=== PATIENT | female | born 1940 | race Caucasian/White ===

== ENCOUNTER 2022-06-29 09:18 | Emergency (ER) | payer MEDICARE, OTHER ==
[~2022-06-29] VITALS: Ht 177.8 cm; Wt 91.1 kg
[~2022-06-29 09:18] MED LIST: ANASTROZOLE1 MG PO; ASPIRIN EC325 MG PO; CELEBREX200 MG PO; ELIQUIS2.5 MG PO; FEXOFENADINE H180 MG PO; FLONASE ALLERG9.9 ML NS; FLUTICASONE PRO16 GM NAS; FOLIC ACID0.4 MG PO; FUROSEMIDE40 MG PO; GABAPENTIN300 MG PO; GLIPIZIDE XL2.5 MG PO; LAMISIL250 MG PO; LISINOPRIL-HCT1 EACH PO; METFORMIN HCL500 MG PO; METOPROLOL SUCC25 MG PO; NICOTINE PATCH1 EAC1 TD; NORCO 5-325 TA1 EACH PO; ONE DAILY1 EAC1 PO; PIROXICAM20 MG PO; POTASSIUM CHLO10 MEQ PO; RESTORIL15 MG PO; RESTORIL7.5 MG PO; SIMVASTATIN40 MG PO; TIZANIDINE HCL4 M1 PO; TRAMADOL HCL50 MG PO; TYLENOL PM EX-1 EACH PO; VITAMIN B-12500 MCG PO; VITAMIN B-6100 MG PO
--- OUTSIDE RECORDS SUMMARY | 2022-06-29 09:20 | XMS ---
PreManage Notification: ANABELLE MOODY Security Requirements Analyst Events No recent Security Events currently on file CRITERIA MET - PDMP CARE PROVIDERS Brad Maddy TANK BUILDER-C Nurse Practitioner: Current PHONE: [phone] Jamaal has no Care Guidelines for this patient. EJere VISIT COUNT (12 MO.) 1 KORIN Pérez TOTAL 1 NOTE: Visits indicate total known visits. ED/UCC VISIT TRACKING (12 MO.) 06/29/2022 09:19 [facility] [place] TYPE: Emergency COMPLAINT: - R LEG WOUND INPATIENT VISIT TRACKING (12 MO.) No inpatient visits to display in this time frame [id number]
== END 2022-06-29 12:03 | disposition home or self-care (01) ==
LOC: ED 09:18
DX: S81.811A Laceration without foreign body, right lower leg, initial encounter (principal); W22.8XXA Striking against or struck by other objects, initial encounter; E11.9 Type 2 diabetes mellitus without complications; I10 Essential (primary) hypertension; I48.91 Unspecified atrial fibrillation; F17.200 Nicotine dependence, unspecified, uncomplicated; Z79.899 Other long term (current) drug therapy; Z79.891 Long term (current) use of opiate analgesic
CPT/HCPCS: 12002; 99282-25

== ENCOUNTER 2022-07-26 13:20 | Inpatient (IN) | payer MEDICARE, OTHER ==
[~2022-07-26] VITALS: Ht 177.8 cm; Wt 91.2 kg
--- NOTE | ~2022-07-26 | EKG ---
[facility] [address], [place] [address] Draft EK completed, results pending confirmation PATIENT NAME: ANABELLE MOODY Electrocardiogram DATE OF : 42 PHYSICIAN: PRELIMINARY REPORT #: [id number] REPORT IS CONFIDENTIAL AND NOT TO BE RELEASED WITHOUT AUTHORIZATION
[~2022-07-26 13:20] MED LIST changes: +ONE DAILY COMP1 EACH PO; -ONE DAILY1 EAC1 PO
--- OUTSIDE RECORDS SUMMARY | 2022-07-26 13:22 | XMS ---
PreManage Notification: ANABELLE MOODY Security Traffic Signal Repairer Events No recent Security Events currently on file CRITERIA MET - [facility] - 2 [facility] in [facility] Maddy SalinasP-C Nurse Practitioner: Family Current PHONE: [phone] Jamaal has no Care Guidelines for this patient. Justo VISIT COUNT ([address] [facility] TOTAL 2 NOTE: Visits indicate total known visits. ED/UCC VISIT TRACKING (12 MO.) 07/26/2022 13:20 [facility] [place] TYPE: Emergency COMPLAINT: - FALL 06/29/2022 09:19 [facility] [place] TYPE: Emergency COMPLAINT: - R LEG WOUND DIAGNOSES: - FDC (current) use of opiate analgesic - Type 2 diabetes mellitus without complications - Striking against or struck by other objects, initial encounter - Laceration without foreign body, right lower leg, initial encounter - Other usp (current) drug therapy - Unspecified atrial fibrillation - Nicotine dependence, unspecified, uncomplicated - Essential (primary) hypertension INPATIENT VISIT TRACKING (12 MO.) No inpatient visits to display in this time frame [email or web address]
[2022-07-26] MEDS ORDERED: GLIPIZIDE5 MG PO (16:12)
--- NOTE | 2022-07-26 16:54 | NUR ---
TELEPHONE REPORT FROM ALECIA MUSTAFA. THIS NURSE TO RESUME CARE ONCE PATIENT ARRIVES TO MEDICAL FLOOR ROOM 110.
--- NOTE | 2022-07-26 18:00 | NUR ---
PATIENT TO [facility] VIA STRETCHER, TRANSFERED OVER TO BED WITH 2 PERSON ASSIST. PATIENT HAS HEARING BOX AND WITHOUT HEARING AID IS VERY C[place]ZON. PATIENT ANSWERING QUESTIONS AND RESPONDING APPROPRIATELY. DAUGHTER IN ROOM, APPEARS VERY AGITATED AND RESTLESS PACING BACK AND FORTH REQUESTING FOR PATIENT MEDICATIONS TO BE REVIEWED AND FOR HER TO HAVE FOOD. CALLED DR. HOLDER AND VERIFIED DIET. PROVIDED PATIENT WITH ENSURE AND APPLESAUCE. PATIENT SKIN HAS GENERALIZED BRUISING ON ARMS AND LEGS, LOWER BACK HAS ABRASIONS AND BRUISING. PATIENT COMPLAINS OF PAIN 5/10 IN LOWER BACK. APPLIED FOAM DRESSING TO BONY AREAS OF BACK TO HELP PROTECT AGAINST SHEAR AND PRESSURE IN BED. AREAS AROUND ABRASIONS AND BRUISING APPEAR BLANCHABLE. PATIENT FELL AT HOME AND IT IS UNKNOWN HOW LONG PATIENT WAS LAYING ON FLOOR. LUNG SOUNDS AUSCULTATE CLEAR, HR IRREGULAR 101-110 HX AFIB- TELE PLACED.
--- NOTE | 2022-07-26 19:10 | NUR ---
WHILE PATIENT GETTING UP TO BS HER HEARING BOX WAS NOT ON WELL AND PATIENT COULD NOT HEAR CNAS VERBAL COMMANDS TO TRANSFER TO BS. PATIENT HAD INCREASED PAIN WITH ACTIVITY UP TO [facility], PATIENT STATED "WHEN I GOT UP TO THE BS THE PAIN IN MY BACK WAS AN 8" PATIENT ALSO ACCIDENTLY MOVED AGAINST IV IN LEFT FA AND PULLING THE CATHETER LOOSE CAUSING THE IV SITE TO BLEED. PRESSURE WAS APPLIED, IV DC'D AND NEW IV INSERTED TO R FA PATIENT TOLERATED WELL. WHILE PATIENT UP HR INCREASED 140s, AFTER BACK TO BED HR RESTING [address] HOLDER NOTIFIED BY TELEPHONE. NO NEW ORDERS.
--- NOTE | 2022-07-26 20:04 | NUR ---
Patient sleeping in bed. New IV placed in right forearm by previous shift. Grandson and daughter at bedside. BACTERIOLOGY TEACHER in place. Bed alarm in place.
--- NOTE | 2022-07-26 20:18 | NUR ---
call light answered, pt awake and resting in bed. pt verbalizes desire to sit on edge of bed, 2pa provided, pt groans and is slow moving. bed alarm on and family remains in room, family educated to use call light if pt attempts to get oob or when the family wishes to leave for the night so the pt can be assisted back laying in bed. family verbalized understanding. pt wishes to drink water but is confused and attempts to drink from coban container, pt reorineted to surroundings and poc for shift. will continue to monitor, call light in reach and pt in view of rn station.
--- NOTE | 2022-07-26 21:15 | NUR ---
IN TO GET VITALS, ACCU CHECK, REPORTED TO RN, WATER REFILLED, NO FURTHER NEEDS AT THIS TIME
--- NOTE | 2022-07-27 00:23 | NUR ---
Patient sleeping in bed. HOB at about 45 degree per patient preference. Call light within reach. Bed alarm in place. On CPOX.
--- NOTE | 2022-07-27 02:56 | NUR ---
OBSERVED PATIENT DURING SLEEP AND WAS HAVING EPISODES OF OBSTRUCTION WITH DESATURATIONS TO LOW 80'S. PLACED 2 LPM WHICH RESOLVED THE DESATURATIONS. FAMILY EARLIER THIS EVENING STATES THAT THE PATIENT REFUSES TO HAVE A SLEEP STUDY.
--- NOTE | 2022-07-27 03:56 | NUR ---
Uneventful shift. Patient has become increasingly more cognicent as shift has progressed. Oriented to self and place. Responds appropriately to questions and commands. Very [place]. Bed alarm remains in place. Lung sounds clear. On CPOX. On 2L O2 via nasal cannula due to drop in O2 w/sleep. Fluctuates between A-fib and tachycardia. On telemetry. Infusing NS at rate of 125. BG 366 at HS. Multiple sores on back and right forearm covered by foam dressings. Scabs on bilat knees and lower extremities. Ambulates to bedside commode w/assist of two and walker. Complains of back pain (chronic). Effectively treated w/PRN ultram.
--- NOTE | 2022-07-27 07:43 | NUR ---
SHIFT REPORT RECEIVED. PT APPEARS TO BE SLEEPING COMFORTABLY. RESPIRATIONS EVEN AND REGULAR. CALL LIGHT WITHIN REACH.
--- NOTE | 2022-07-27 08:05 | NUR ---
PT ASSESSMENT COMPLETED. IV FLUIDS RUNNING. MEDICATIONS ADMINISTERED. HR RANGING FROM 117-140. METOPROLOL GIVEN. NO COMPLAINTS OF SOB OR CP ATT. CALL LIGHT WITHIN REACH.
[2022-07-27] MEDS ORDERED: DULOXETINE HCL20 MG PO (08:41)
[2022-07-27] MEDS ORDERED: LISINOPRIL-HCT1 EAC2 PO (08:42)
[2022-07-27] MEDS ORDERED: OZEMPIC0.25 MG/0. SUB-Q (08:44)
[2022-07-27] MEDS ORDERED: BUPROPION XL300 MG PO (08:44)
--- NOTE | 2022-07-27 09:21 | NUR ---
XRAY AT BEDSIDE TO TRANSPORT TO RADIOLOGY. PT SALINE LOCKED FOR TRANSPORT.
--- NOTE | 2022-07-27 10:03 | NUR ---
PT RETURNED FROM IMAGING. C/O PAIN 07/11 TO BACK. PAIN MEDICATION GIVEN. IV FLUIDS RUNNING. CPOX ON. FAMILY AT BEDSIDE.
--- NOTE | 2022-07-27 12:08 | NUR ---
TO PT ROOM FOR MEDICATION ADMINISTRATION. PT IS SITTING UP IN BED. RATES PAIN 7/10 IN BACK. PT IS A/O, RESPIRATIONS EVEN AND REGULAR.
--- NOTE | 2022-07-27 13:08 | NUR ---
MED REC COMPLETE
--- NOTE | 2022-07-27 13:59 | NUR ---
ROUNDED ON PT AND COMPLETED ASSESSEMENT. IV FLUIDS RUNNING. FAMILY AT BEDSIDE. PT IS A/O, SPEECH CLEAR, RESPIRATIONS EVEN AND REGULAR.
--- NOTE | 2022-07-27 14:20 | NUR ---
PATIENT IN BED TALKING TO FAMILY. I/O'S COMPLETED. VITALS COMPLETED. NO OTHER NEEDS AT THIS TIME. CALL LIGHT WITHIN REACH.
--- NOTE | 2022-07-27 14:22 | NUR ---
SPOKE WITH PATIENT IN ROOM. PATIENT HAS SON AND DAUGHTER IN ROOM. PATIENT ORIENTED. PATIENT LIVES ALONE IN SMALL HOUSE. OWNS HOME. USES A CANE AND HAS A FWW SHE USES ALSO. SHE DOES NOT DRIVE. USES TAXI TICKETS FOR TRIPS TO STORE, ETC. FEELS SHE HAS INCOME FOR UTILITIES AND FOOD. PATIENT DOES ADMIT SHE COULD USE SOME HELP AROUND THE HOUSE MORE WITH CHORES. DISCUSSED WHAT HER PLAN IS SHE AGES. SHE WOULD LIKE TO TRY IN-HOME HELP FOR NOW, BUT POSSIBLE ASST LIVING SOME DAY. SHE HAS WALK IN SHOWER WITH SMALL LIP, HAS SHOWER CHAIR. NO STAIRS IN HOME. SHE STATES HER KIDS WORK SO SHE LIKES TO BE INDEPENDENT. PATIENT KNOWS OF [employer] AND [employer] AND DID NOT HAVE GOOD THINGS TO SAY ABOUT EITHER. PATIENT HAS SOME AVERSION TO THOSE PLACES BEING IN HER BUSINESS. SHE HAS BEEN UP IN ROOM WITH FWW AND FEELS STEADIER TODAY SHE REPORTS. SHE INTENDS TO RETURN HOME. GAVE HER BROCHURES FOR IN-HOME CARE, DHS, ASSISTED LIVING, MEDICAL EQUIPMENT BORROWING INFORMATION. DISCUSSED SHE GETS CLOSER TO DISCHARGE OUR TEAM WILL FOLLOW UP AGAIN. NO FURTHER QUESTIONS.
--- NOTE | 2022-07-27 16:44 | NUR ---
ROUNDED ON PT. PT IS A/O, RESPIRATIONS EVEN AND REGULAR. DENIES COMPLAINTS OR NEEDS ATT.
--- NOTE | 2022-07-27 16:59 | NUR ---
TO PT ROOM FOR MEDICAITON ADMINISTRATION. PT A/O, IV FLUIDS RUNNING.
--- NOTE | 2022-07-27 18:59 | NUR ---
PATIENT LYING IN BED RESTING. VITALS AND I/O'S COMPLETED. NO OTHER NEEDS AT THIS TIME CALL LIGHT IN REACH.
--- NOTE | 2022-07-27 19:53 | NUR ---
Patient sleeping in bed. Bed alarm in place. Call light within reach.
--- NOTE | 2022-07-28 01:10 | NUR ---
Patient sleeping in bed. CPOX in place. On 2L O2 nasal cannula due to desat w/sleep. Bed alarm in place. Call light within reach.
--- NOTE | 2022-07-28 04:39 | NUR ---
Uneventful shift. Fully A&O. Calls appropriately. On 2L O2 during night via nasal cannula. Monitored on CPOX and telemetry. Infusing fluids at rate of 125. Complains of pain in back and bilat knees. Treated w/PRN ultram.
--- NOTE | 2022-07-28 05:40 | NUR ---
IN TO ASSIST PT TO [facility] [place] FWW, PT VOIDED, BACK TO BED, NO FURTHER NEEDS AT THIS TIME
--- NOTE | 2022-07-28 08:24 | NUR ---
PATIENT IN BED VISITING WITH FAMILY. AM CARE COMPLETED, DID NOT WANT TO GET UP IN CHAIR AT THIS TIME. NO OTHER NEEDS AT THIS TIME. CALL LIGHT WITHIN REACH.
--- NOTE | 2022-07-28 09:45 | NUR ---
TO PT ROOM FOR MORNING ASSESSMENT. PT TRANSFERRED WITH ONE PERSON ASSIST AND WALKER FROM CHAIR TO BED. PT IS A/O, RESPIRATIONS EVEN AND REGULAR. IV FLUIDS RUNNING. CALL LIGHT WITHIN REACH.
--- NOTE | 2022-07-28 09:57 | NUR ---
PATIENT BACK IN BED AFTER MEAL, VISITING WITH FAMILY. VITALS AND I/O'S COMPLETED. NO OTHER NEEDS, CALL LIGHT WITHIN REACH.
--- NOTE | 2022-07-28 10:13 | NUR ---
ROUNDED ON PT. PT RATES PAIN /10. ULTRAM GIVEN. FAMILY AND MD AT BEDSIDE. PT IS A/O, RESPIRATIONS EVEN AND REGULAR. IV FLUIDS RUNNING.
--- NOTE | 2022-07-28 11:15 | NUR ---
CALLED RADIOLOGY X2 TODAY RE:RESULTS OF XRAY COMPLETED YESTERDAY. IMAGING STILL HAS NOT READ.
--- NOTE | 2022-07-28 12:00 | NUR ---
TO PT ROOM FOR MEDICATION ADMINISTRATION. PT IS SITTING AT EOB WITH THERAPY. A/O, RESPIRATIONS EVEN AND REGULAR. NO NEW COMPLAINTS ATT.
--- NOTE | 2022-07-28 14:32 | NUR ---
PATIENT IN BED AFTER USING RESTROOM. VITALS AND I/O'S ARE COMPLETED. NO OTHER NEEDS AT THIS TIME. CALL LIGHT IN REACH.
--- NOTE | 2022-07-28 14:58 | NUR ---
PT ASSESSMENT COMPLETED. RATES PAIN /10. ULTRAM GIVEN. IV FLUIDS RUNNING. CALL LIGHT WITHIN REACH.
--- NOTE | 2022-07-28 18:04 | NUR ---
PATIENT RESTING IN BED AFTER MEAL. VITALS AND I/O'S COMPLETED. NO OTHER NEEDS AT THIS TIME. CALL LIGHT WITHIN REACH.
--- NOTE | 2022-07-28 18:24 | NUR ---
ROUND ON PT. PT IS A/O, SITTING UP IN BED. IV FLUIDS RUNNING. PT DENIES NEEDS OR COMPLAINTS ATT. CALL LIGHT WITHIN REACH.
--- NOTE | 2022-07-28 19:22 | NUR ---
REPORT RECEIVED FROM DAY SHIFT RN. PT LYING IN BED ALERT AND ORIENTED. DENIES NEEDS. WHITE BOARD UPDATED. CALL LIGHT IN REACH.
--- NOTE | 2022-07-28 22:00 | NUR ---
EVENING ASSESSMENT COMPLETE. SCHEDULED MEDS ADMIN PER EMAR. PRN FOR PAIN ADMIN FOR 8/10 BACK PAIN. PT UP TO BSC WITH 2PA AND FWW TO VOID. STAFF ASSIST WITH JAMI CARE. BACK TO BED. OPEN AREA NOTED ON RIGHT INNER GLUTEAL CLEFT PT CALLS A "BOIL." ALLEVYN PLACED. VS AND I&O COMPLETE. IVF INFUSING WNL. ASSISTED PT TO REPOSITION IN BED. PT DENIES QUESTIONS OR CONCERNS. CALL LIGHT IN REACH.
--- NOTE | 2022-07-29 00:18 | NUR ---
PT RESTING WITH EYES CLOSED. 2L/NC IN PLACE. SpO2 99%. HR 90'S. RESPIRATIONS EVEN. CALL LIGHT IN REACH.
--- NOTE | 2022-07-29 02:42 | NUR ---
CALL LIGHT ANSWERED. PT UP TO BSC WITH FWW AND 2PA TO VOID. STAFF ASSIST WITH JAMI CARE. BACK TO BED, ANDREA WELL.
--- NOTE | 2022-07-29 03:19 | NUR ---
PT REPORTS BACK PAIN 07/11. PRN FOR PAIN ADMIN PER EMAR.
--- NOTE | 2022-07-29 06:40 | NUR ---
VS AND I&O COMPLETE. PT DENIES PAIN OR NAUSEA. 2L/NC IN PLACE. SpO2 99%. HR 90'S. PT DENIES FURTHER NEEDS. CALL LIGHT IN REACH.
--- NOTE | 2022-07-29 08:15 | NUR ---
TO PT ROOM FOR MEDICATION ADMINISTRATION. PT IS UP IN CHAIR FOR MEAL. A/O, RESPIRATIONS EVEN AND REGULAR. PT REMAINS ON TELE. IV FLUIDS RUNNING.
--- NOTE | 2022-07-29 08:35 | NUR ---
PATIENT UP IN CHAIR AFTER USING BEDSIDE COMMODE, AM CARE COMPLETED AND BLOOD SUGAR CHECKED AND DOCUMENTED. NO OTHER NEEDS AT THIS TIME. CALL LIGHT WITHIN REACH.
--- NOTE | 2022-07-29 09:48 | NUR ---
ROUNDED ON PATIENT. PHYSICAL THERAPY AT BEDSIDE. IV FLUIDS RUNNING. RATES PAIN IN BACK 06/10. CALL LIGHT WITHIN REACH.
--- NOTE | 2022-07-29 10:22 | NUR ---
PATIENT IN BED AFTER USING RESTROOM, VITALS AND I/O'S COMPLETED. NO OTHER NEEDS AT THIS TIME. CALL LIGHT WITHIN REACH.
--- NOTE | 2022-07-29 11:39 | NUR ---
TO PT ROOM FOR MEDICATION ADMINISTRATION. PT IS A/O, RESPIRATIONS EVEN AND REGULAR. HR 99, SPO2 96% ON RA. IV MAG 4G RUNNING. CALL LIGHT WITHIN REACH.
--- NOTE | 2022-07-29 13:35 | NUR ---
PATIENT UP IN CHAIR AFTER MEAL. VITALS AND I/O'S COMPLETED. NO OTHER NEEDS AT THIS TIME. CALL LIGHT IN REACH.
--- NOTE | 2022-07-29 14:39 | NUR ---
PT ASSESSMENT COMPLETED. PT IS A/O, SITTING IN CHAIR. IV FLUIDS RUNNING. DENIES NEEDS OR COMPLAINTS ATT. CALL LIGHT WITHIN REACH.
--- NOTE | 2022-07-29 16:01 | NUR ---
TO PT ROOM FOR MEDICAITON ADMINISTRATION. RATES PAIN /. A/O, RESPIRATIONS EVEN AND REGULAR. CALL LIGHT WITHIN REACH.
--- NOTE | 2022-07-29 17:40 | NUR ---
TO PT ROOM FOR MEDICATION ADMINISTRATION. PT IS A/O, RESPIRATIONS EVEN AND REGULAR. PT IS SITTING UP IN CHAIR FOR MEAL. IV FLUIDS RUNNING. FAMILY AT BEDSIDE.
--- NOTE | 2022-07-29 18:23 | NUR ---
PATIENT UP IN CHAIR, VITALS AND I/O'S COMPLETED. NO OTHER NEEDS AT THIS TIME. CALL LIGHT WITHIN REACH.
--- NOTE | 2022-07-29 19:13 | NUR ---
REPORT RECEIVED FROM DAY SHIFT RN. PT SITTING IN RECLINER ALERT AND ORIENTED WATCHING TV. DENIES NEEDS. CALL LIGHT IN REACH.
--- NOTE | 2022-07-29 21:01 | NUR ---
PATIENT ASSISTED A 1PA TO BSC. Pt ABLE TO VOID. PATIENT ASSISTED TO THE BR TO BRUSH HER TEETH. PATIENT ABLE TO BRUSH TEETH INDEPENDENTLY. PATIENT IS NOW IN BED RESTING. PATIENTS BELONGINGS ARE WITHIN REACH. CALL LIGHT IN REACH. NO FURTHER NEEDS AT THIS TIME.
--- NOTE | 2022-07-29 21:02 | NUR ---
PATIENT IN BED RESTING. TEMP TURNED DOWN IN ROOM PER REQUEST. NO FURTHER NEEDS NOTED. CALL LIGHTIN REACH.
--- NOTE | 2022-07-29 21:15 | NUR ---
VITALS TAKEN AND RECORDED. INTAKE AND OUTPUT RECORDED. BS CHECKED AND RESULTS REPORTED TO PRIMARY RN. PATIENTS CPOX MONITOR CHANGED TO RING FINGER ON HER LEFT HAND. PATIENTS IV INFUSING PER ORDER. ATTEMPTED TO PLACE PATIENT ON OXYGEN. PATIENT STATED "I DONT NEED THAT. I CANT DO ONE MORE CORD". EDUCATED PATIENT ON THE IMPORTANCE OF OXYGEN AT NIGHT. PATIENT CONTINUED TO REFUSE.
--- NOTE | 2022-07-29 21:30 | NUR ---
EVENING ASSESSMENT COMPLETE. SCHEDULED MEDS ADMIN PER EMAR. PT REPORTS BACK/KNEE PAIN 07/11. PRN FOR PAIN ADMIN PER EMAR. IVF INFUSING WNL. PT DENIES NAUSEA. CPOX IN PLACE. SpO2 MID 90'S ON RA. ASSISTED PT TO REPOSITION FOR COMFORT. DENIES QUESTIONS OR CONCERNS. CALL LIGHT IN REACH.
--- NOTE | 2022-07-29 23:53 | NUR ---
PT RESTING IN BED WITH EYES CLOSED. RESPIRATIONS EVEN. SpO2 98% ON RA. HR 80'S.
--- NOTE | 2022-07-30 00:39 | NUR ---
patient called to use the restroom. 1 pa using walker. bedside commode this time. patient is back in bed. cpox back on. patient denies any further care or needs. call light within reach.
--- NOTE | 2022-07-30 04:04 | NUR ---
PT RESTING IN BED WITH EYES CLOSED. Sp02 94% ON RA. HR 80'S. RESPIRATIONS EVEN.
--- NOTE | 2022-07-30 06:30 | NUR ---
PT REPORTS BACK/KNEE PAIN 08/11. PRN FOR PAIN ADMIN PER EMAR. DENIES FURTHER NEEDS. CALL LIGHT IN REACH.
--- NOTE | 2022-07-30 07:38 | NUR ---
PT APPEARS TO BE SLEEPING SOUNDLY AT TIME OF SHIFT REPORT, LEFT UNDISTURBED. CALL LIGHT IS ON BED NEXT TO HER, NEEDED ITEMS AT BEDSIDE. BREATHING EVEN AND UNLABORED LOODS RESTFUL.
--- NOTE | 2022-07-30 09:46 | NUR ---
PT UP TO THE CHAIR FOR MORNING MEAL. WATCHES TV, TALKS ON PHONE, DENIES NEEDS OF. C/O SORE LEGS FROM P/T WAS TREATED FOR PAIN EARLIER IN THE SHIFT. SPEAKS TO DT ON THE PHONE TO NOTIFIY HER OF MEETING WITH D/C SECURITY ADVISOR LATER TODAY. CALL LIGHT IN REACH
--- NOTE | 2022-07-30 10:36 | NUR ---
PT WORKS WITH P/T RETURNS TO REST IN BED C/O LEG PAIN. ULTRAM PROVIDED. NEEDED ITEMS IN REACH
--- NOTE | 2022-07-30 10:44 | NUR ---
SPOKE WITH PATIENT AND PATIENT DAUGHTER ELIANA VIA PHONE. ELIANA WILL COME IN TO DISCUSS DISCHARGE DISPOSITION AT 11 AM.
--- NOTE | 2022-07-30 11:00 | NUR ---
INTO ROOM TO SPEAK WITH PATIENT AND HER DAUGHTER ELIANA REGARDING DISCHARGE DISPOSITION. WHEN ASKES PATIENT AGREE THAT SHE DOES NOT FEEL THAT SHE IS SAFE LIVING AT HOME ALONE AT THIS TIME. DISCUSSED WITH PATIENT AND FAMILY PLACMENT TO A [facility] FOR 21 DAY REHAB STAY. PATIENT AND DAUGHTER ARE AGREEABLE TO PLACEMENT AND WOULD LIKE TO CONSIDER [facility], [facility] AND [facility] AT THE [facility]. DISCUSSED THAT THE PATIENT CAN SPEAK WITH [facility] TO START THE HALFWAY MEDICAID PROCESS IN [place] TO TRANSFER TO AN ARSLAN WHEN DISCHARGED FROM [facility]. LIST OF ARSLAN AND CARD FOR [facility] GIVEN TO PATIENT DAUGHTER ELIANA WHO WILL ASSIST THE PATIENT. DISCUSSED WITH PATIENT THE DIFFICULTIES SHE FEELS SHE HAS HAD COMMUNICATING WITH THE PA AT HER PCP OFFICE. ADVISED THAT IT MAY BE A GOOD IDEA FOR THE PATIENT TO TRANSFER CARE TO DR. SANTANA TO SEE IF HER DIFFICULTIES RESOLVE. PATIENT AND DAUGHTER AGREE. WILL CALL FOR BED AVAILABILITY AT [facility] AND START THE PLACEMENT PROCESS. WILL CALL PCP OFFICE TO HAVE HER TRANSFERRED TO DR. SANTANA. ADVISED THAT I WILL UPDATE PATIENT AND HER DAUGHTER WITH PLAN JAMAL.
--- NOTE | 2022-07-30 14:02 | NUR ---
PER SHARATH AT [facility] NEXT BED AVAILABLE WILL BE Saturday08/01/22. CHART FAXED FOR REVIEW. PER EDWIN AT [facility] NEXT BED AVAILABILITY 07/22/22. CHART FAXED FOR REVIEW.
--- NOTE | 2022-07-30 14:19 | NUR ---
PT SITTING UP IN BED JUST FINISHED WORKING WITH O/T REQUESTS PAIN MEDS FOR DISCOMFORT IN HER BACK AND THE BACK OF HER KNEES.
--- NOTE | 2022-07-30 14:21 | NUR ---
P.T. IN WITH PT, WILL CHECK BACK AGAIN.
--- NOTE | 2022-07-30 14:51 | NUR ---
PT AGREES PAIN MEDS WERE EFFECTIVE AND SHE IS RESTING COMFORTABLY NOW. STATES SHE IS GOING TO [facility] FOR A BIT. ENCOURAGED TO CALL FOR ANY NEEDS
--- NOTE | 2022-07-30 17:22 | NUR ---
PT SITTING UP IN BED WITH EVENING MEAL DENIES FURTHER NEEDS AT THIS TIME
--- NOTE | 2022-07-30 18:01 | NUR ---
PT IN BED. VITALS AND I'S AND O'S TAKEN. NO FURTHER NEEDS. CALL LIGHT WITHIN REACH.
--- NOTE | 2022-07-30 19:41 | NUR ---
REPORT RECEIVED FROM DAY SHIFT RN. PT LYING IN BED WITH EYES CLOSED. RESPIRATIONS EVEN. CALL LIGHT IN REACH.
--- NOTE | 2022-07-30 20:57 | NUR ---
EVENING ASSESSMENT COMPLETE. SCHEDULED MEDS ADMIN PER EMAR. PRN FOR PAIN ADMIN FOR C/O 810 BACK AND KNEE PAIN. PT UP TO BSC TO VOID WITH 1PA AND FWW. PT ABLE TO DO OWN JAMI CARE. BACK TO BED, ANDREA WELL. GAIT STEADY. ASSISTED TO REPOSITION IN BED. IVF INFUSING WNL. CPOX IN PLACE. SpO2 HIGH 90'S ON RA. PT DENIES QUESTIONS OR CONCERNS. CALL LIGHT IN REACH.
--- NOTE | 2022-07-30 23:00 | NUR ---
PT RESTING IN BED WITH EYES CLOSED. RESPIRATIONS EVEN. SpO2 97% ON RA. HR 90'S. CALL LIGHT IN REACH.
--- NOTE | 2022-07-31 00:23 | NUR ---
IV PUMP ALARMING. NEW BAG IVF INFUSING WNL. PT UP TO BSC WITH 1PA AND FWW TO VOID. BACK TO BED, ANDREA WELL. DENIES FURTHER NEEDS. CALL LIGHT IN REACH.
--- NOTE | 2022-07-31 03:21 | NUR ---
PT UP TO BSC WITH MATLAB DEVELOPER. BACK TO BED. REPORTS NOT BEING ABLE TO SLEEP AND PAIN IN BACK. PRN FOR PAIN AND SLEEP ADMIN PER EMAR. CPOX IN PLACE. SpO2 98% ON RA. HR 90'S. NO FURTHER NEEDS. CALL LIGHT IN REACH.
--- NOTE | 2022-07-31 06:27 | NUR ---
PT SITTING ON SIDE OF BED. REPORTS BEING UNABLE TO REST DESPITE PRN FOR SLEEP AND PAIN ADMIN. VS AND I&O OBTAINED. PT UP TO BR TO VOID WITH SBA AND FWW. PT REPORTS INCREASED PAIN AND WEAKNESS SINCE PT YESTERDAY. WILL ADMIN PRN FOR PAIN WHEN AVAILABLE. LAB IN ROOM FOR MORNING DRAW. NO FURTHER NEEDS.
--- NOTE | 2022-07-31 07:32 | NUR ---
PT SLEEPING SOUNDLY AT TIME OF SHIFT REPORT, BREATHING EVEN AND UNLABORED, LEFT UNDISTURBED. CALL LIGHT AT BEDSIDE.
--- NOTE | 2022-07-31 07:44 | NUR ---
PT AWAKE IN BED. PT REFUSED TO OPEN CURTAINS. WARM CLOTH GIVEN FOR FACE. WHITE BOARD UPDATED. NO FURTHER NEEDS AT THIS TIME. CALL LIGHT IN REACH.
--- NOTE | 2022-07-31 08:00 | NUR ---
PT UP SBA WITH FWW TO BSC THEN THE CHAIR. PT SITTING UP WITH CALL LIGHT IN REACH. NO FURTHER NEEDS AT THIS TIME.
--- NOTE | 2022-07-31 08:15 | NUR ---
PT UP TO TOILET THEN TO CHAIR FOR MORNING MEAL. CALL LIGHT IN LAP FRESH H20 TO CHAIRSIDE.
--- NOTE | 2022-07-31 11:32 | NUR ---
PT HAS BEEN UP IN THE CHAIR MOST OF THIS SHIFT, RETURNS TO BED TO REST. STATES HER KNEES ARE "KILLING ME" PRN MEDS TO BE ADMINISTERED
--- NOTE | 2022-07-31 12:52 | NUR ---
THIS RN IN TO SEE PATIENT FOR CM. PATIENT SAYS SHE WOULD CONSIDER GOING TO A SNF IF SHE HAD A 3 DAY INPATIENT QUALIFYING STAY. PATIENT IS AWARE SHE WOULD HAVE TO HAVE THE THREE DAYS FOR THIS TO HAPPEN AND SHE VERBALIZED UNDERSTANDING. PATIENT ALSO GIVEN THE STATE CARE GIVERS INFORMATION AND THE PRIVATE CARE INFORMATION FOR FAMILY RESCOURCES.
--- NOTE | 2022-07-31 13:49 | NUR ---
PT RESTING IN BED AND READING A BOOK. CALL LIGHT IN REACH. FLUIDS ENCOURAGED. NO FURTHER NEEDS AT THIS TIME.
--- NOTE | 2022-07-31 14:51 | NUR ---
pt up several times passing loose stool. returns to resting in bed dc resource management planner is with her now.
--- NOTE | 2022-07-31 14:51 | NUR ---
PT CALLED WHEN DONE USING BATHROOM. THIS CNA2 PERFORMED JAMI CARE ON PT THEN SHE AMBULATED BACK TO BED W/STBY ASSIST & THE USE OF A FWW. PT COMPLAINED OF KNEE PAIN BUT SHE WAS STEADY. PT WAS ABLE TO GET HERSELF IN BED AND ADJUSTED INDEPENDENTLY. PT IS READING IN BED W/CALL LIGHT IN PLACE.
--- NOTE | 2022-07-31 14:58 | NUR ---
THIS RN IN TO TALK WITH PATIENT ABOUT PLACEMENT OPTIONS. INFORMED PATIENT HAIM TUCKER WAS GOING TO BE UNABLE TO TAKE HER AND THAT WE HAVE CALLS OUT TODAY TO [facility] AND HAVE NOT HAD A RETURN CALL YET. THIS RN INFORMED PATIENT THAT [facility] HAD BEDS AVAILABLE AND THAT [facility] MIGHT HAVE A BED. PATIENT SAYS SHE DOES NOT WANT TO GO TO [facility] AND SHE WILL NOT GO TO [facility]. [facility] RESPONDED WHILE TYPING THIS NOTE AND THEY WILL NOT HAVE ANY BEDS AVAILABLE THIS WEEK.
--- NOTE | 2022-07-31 15:55 | NUR ---
[facility] WILL ACCEPT NEW PATIENT'S THAT ARE NOT VACCINATED LONG THEY ARE CURRENTLY NOT COVID POSITIVE. PATIENT'S CHART FAXED TO THEM FOR REVIEW THERE ARE NO OTHER CURRENT AVAILABLE OPTIONS.
[2022-07-31] MEDS ORDERED: DULOXETINE HCL20 MG PO (16:32)
[2022-07-31] MEDS ORDERED: TRAMADOL HCL50 MG PO (16:32)
[2022-07-31] MEDS ORDERED: BUPROPION XL300 MG PO (16:33)
--- NOTE | 2022-07-31 16:49 | NUR ---
THIS RN IN TO TALK WITH PATIENT AND HER DAUGHTER ELIANA. I INFORMED THEM THAT [facility] AND [facility]ATE HAVE RESPONDED AND HAVE NO UNAVAILABLE BEDS AND WILL NOT HAVE THIS WEEK. INFORMED THEM THAT [facility] BE ABLE TO TAKE HER TOMORROW. PATIENT AND DAUGHTER HAVE AGREED TO DC TO [facility] IF THAT IS WHAT CAN BE ARRANGED, BUT WOULD LIKE US TO JUST CHECK WITH YESICA KATE IF ANYTHING OPENS UP OVERNIGHT AND [facility] WILL CHECK ON THIS IN THE AM. ELIANA IS NOT COMFORTABLE TRANSPORTING HER MOM AT [place]. PATIENT AND DAUGHTER HAVE AGREED TO MAKE PRIVATE PAYMENT FOR A WHEELCHAIR VAN TO TRANSPORT THE PATIENT ON [place]. THEY ARE AWARE OF THE COST AND WILL MAKE A CREDIT CARD PAYMENT FOR THE SERVICE. [facility] WILL LET US KNOW IF THEY WILL TAKE THE PATIENT IN THE AM. RAPID COVID TEST JUST ORDERED FOR DISPOSITION.
--- NOTE | 2022-07-31 16:54 | NUR ---
PT SITTING UP IN CHAIR VISITING WITH HER DAUGHTER. DC DRY PLASTERER IN TO SPEAK WITH BOTH
--- NOTE | 2022-07-31 19:34 | NUR ---
REPORT RECEIVED FROM DAY SHIFT RN. PT LYING IN BED ALERT AND ORIENTED. ASSISTED TO REPOSITION. DENIES FURTHER NEEDS. WHITE BOARD UPDATED. CALL LIGHT IN REACH.
--- NOTE | 2022-07-31 22:00 | NUR ---
PT UP TO BSC TO VOID WITH FWW AND 1PA. GAIT STEADY. PT ABLE TO DO OWN JAMI CARE. BACK TO BED, ANDREA WELL. EVENING ASSESSMENT COMPLETE. SCHEDULED MEDS ADMIN PER EMAR. PRN FOR PAIN ADMIN FOR 8/10 BILAT KNEE PAIN. PRN FOR SLEEP ADMIN PER PT REQUEST. ASSISTED PT TO REPOSITION FOR COMFORT. PT DENIES QUESTIONS OR CONCERNS. CALL LIGHT IN REACH.
--- NOTE | 2022-07-31 23:38 | NUR ---
PT AWAKE IN BED. UP TO BSC WITH 1PA AND FWW TO VOID. BACK TO BED. ANDREA WELL. LIGHTS OUT PER REQUEST. NO FURTHER NEEDS.
--- NOTE | 2022-08-01 02:00 | NUR ---
CALL LIGHT ANSWERED. PT UP TO BSC WITH 1PA AND FWW TO VOID. ABLE TO DO OWN JAMI CARE. BACK TO BED, ANDREA WELL. DENIES FURTHER NEEDS.
--- NOTE | 2022-08-01 02:56 | NUR ---
CALL LIGHT ANSWERED. PT UP TO BSC TO VOID WITH FWW AND 1PA. BACK TO BED. PT REPORTS 8/10 KNEE PAIN. PRN FOR PAIN ADMIN PER EMAR. NO FURTHER NEEDS.
--- NOTE | 2022-08-01 05:28 | NUR ---
CALL LIGHT ANSWERED. PT UP TO BSC WITH FWW AND 1PA TO VOID. PT ABLE TO DO OWN JAMI CARE. GAIT WEAK R/T BILAT KNEE PAIN. BACK TO BED, ANDREA WELL. VS AND I&O COMPLETE. DENIES FURTHER NEEDS. CALL LIGHT IN REACH.
--- NOTE | 2022-08-01 08:13 | NUR ---
MORNING ASSESSMENT COMPLETE, PT SITTING UP IN RECLINER AWAITING BREAKFAST. PT DENIES NEEDS AT THIS TIME. WARM BLANKETS PROVIDED. CALL LIGHT IN REACH.
--- NOTE | 2022-08-01 08:33 | NUR ---
PATIENT DID AM CARES, WAS WATING FOR BREAKFAST, PATIENT NEEDED NO OTHER ASSISTANCE, WILL CHECK BACK IN, CALL LIGHT WAS WITHIN REACH
--- NOTE | 2022-08-01 09:08 | NUR ---
Attempted to call [facility] in [place] x 2 this am and also texted Karen to check for a bed. FAmily would prefer placement in [facility], they do not have beds open. Received a text from Ann Marie at [facility] at [phone] and they will accept her today. They would like her early. Let her know I will contact the Gabstr van and it will depend on their scheduled. They also requested pt to be notified they have a no smoking policy. Pt notified and states she is not a smoker. Orders were faxed at [phone] to Ann Marie at [facility]. WC van scheduled for 10:00 pickup. They will use our wc. Discussed with pt clothing, personal belongings, and shoes to walk in for rehab. She will call her daughter to bring items. Pt will pay the wc van with a card. Pt denies other needs
--- NOTE | 2022-08-01 09:32 | NUR ---
PATIENT IS GETTING READY FOR DISCHARGE, PATIENT'S DAUGHTER IS HERE, WILL ASSIST IN GETTING PATIENT READY TO GO!
== END 2022-08-01 10:00 | disposition home or self-care (01) | DRG 917 ==
LOC: ED 13:20 → MS 13:21
PROVIDERS: ADMIT Family Medicine; ATTEND Internal Medicine
DX: T42.4X1A Poisoning by benzodiazepines, accidental (unintentional), initial encounter (principal); G92.8 Other toxic encephalopathy; N17.9 Acute kidney failure, unspecified; M62.82 Rhabdomyolysis; Z20.822 Contact with and (suspected) exposure to COVID-19; M54.9 Dorsalgia, unspecified; E87.6 Hypokalemia; E11.9 Type 2 diabetes mellitus without complications; I48.91 Unspecified atrial fibrillation; E83.42 Hypomagnesemia; Z90.49 Acquired absence of other specified parts of digestive tract; Z79.01 Long term (current) use of anticoagulants; Z79.84 Long term (current) use of oral hypoglycemic drugs; Z79.899 Other long term (current) drug therapy; X58.XXXA Exposure to other specified factors, initial encounter
CPT/HCPCS: 36415; 70450; 71045; 72070; 72100; 80048; 80053; 81001; 82553; 83735; 85025; 85610; 93005; 93010; 94762; 97110; 97116; 97162; 97165; 97535; 99285-25; A9270; C9803; J1815; J3475; J7030; U0003

== ENCOUNTER 2023-07-16 11:28 | Inpatient (IN) | payer MEDICARE, OTHER ==
[~2023-07-16] VITALS: Ht 177.8 cm; Wt 76.4 kg
--- OUTSIDE RECORDS SUMMARY | ~2023-07-16 | XMS | Continuity of Care Document ---
Demographics + + + | Address | [address] | | | [place] [address] | + + + | Preferred Language | Unknown | + + + | Marital Status | Never | + + + | Presybeterian Affiliation | Unknown | + + + | Race | White | + + + | Ethnic Group | Not or | + + + Author + + + | Author | [facility] | + + + | Organization | [facility] | + + + | Address | [address] | | | [place] [address] | + + + | Phone | | + + + Care Team Providers + + + + | Care Cornice Maker Name | Role | Phone | + + + + Unavailable | Unavailable | + + + + Unavailable | Unavailable | + + + + Unavailable | Unavailable | + + + + Allergies and Intolerances + + + + + + | date | description | facility | reaction | severity | + + + + + + | (no date) | No Known | [facility] | (no reaction) | (no severity) | | | Allergies | | | | + + + + + + Encounters No information. Functional Status No information. Immunizations No information. Medications + + + + | date | description | facility | + + + + | 2022-06-29 00:00 | TERBINAFINE | [facility] | + + + + | 2022-08-01 00:00 | TERBINAFINE | [facility] | + + + + | 2023-07-08 00:00 | TERBINAFINE | [facility] | + + + + | 2022-06-29 00:00 | APIXABAN | [facility] | + + + + | 2022-08-01 00:00 | APIXABAN | [facility] | + + + + | 2023-07-08 00:00 | APIXABAN | [facility] | + + + + | 2022-06-29 00:00 | FLUTICASONE PROPIONATE 50 | [facility] | | | MCG | | + + + + | 2022-08-01 00:00 | FLUTICASONE PROPIONATE 50 | [facility] | | | MCG | | + + + + | 2023-07-08 00:00 | FLUTICASONE PROPIONATE 50 | [facility] | | | MCG | | + + + + | 2022-06-29 00:00 | FLUTICASONE PROPIONATE | [facility] | + + + + | 2022-08-01 00:00 | FLUTICASONE PROPIONATE | [facility] | + + + + | 2023-07-08 00:00 | FLUTICASONE PROPIONATE | [facility] | + + + + | 2022-06-29 00:00 | | [facility] | | | LISINOPRIL/HYDROCHLOROTHIAZ | | | | LUZ | | + + + + | 2022-06-29 00:00 | NICOTINE 21MG | [facility] | + + + + | 2022-08-01 00:00 | NICOTINE 21MG | [facility] | + + + + | 2023-07-08 00:00 | NICOTINE 21MG | [facility] | + + + + | 2022-06-29 00:00 | PIROXICAM | [facility] | + + + + | 2022-08-01 00:00 | PIROXICAM | [facility] | + + + + | 2023-07-08 00:00 | PIROXICAM | [facility] | + + + + | 2022-06-29 00:00 | SIMVASTATIN | [facility] | + + + + | 2022-08-01 00:00 | SIMVASTATIN | [facility] | + + + + | 2023-07-08 00:00 | SIMVASTATIN | [facility] | + + + + | 2022-06-29 00:00 | FOLIC ACID | [facility] | + + + + | 2022-08-01 00:00 | FOLIC ACID | [facility] | + + + + | 2023-07-08 00:00 | FOLIC ACID | [facility] | + + + + | 2022-06-29 00:00 | PYRIDOXINE HCL | [facility] | + + + + | 2022-06-29 00:00 | TEMAZEPAM | [facility] | + + + + | 2022-08-01 00:00 | TEMAZEPAM | [facility] | + + + + | 2023-07-08 00:00 | TEMAZEPAM | [facility] | + + + + | 2022-06-29 00:00 | TEMAZEPAM | [facility] | + + + + | 2022-06-29 00:00 | CELECOXIB | [facility] | + + + + | 2022-06-29 00:00 | GABAPENTIN | [facility] | + + + + | 2022-06-29 00:00 | GLIPIZIDE | [facility] | + + + + | 2022-08-01 00:00 | GLIPIZIDE | [facility] | + + + + | 2023-07-08 00:00 | GLIPIZIDE | [facility] | + + + + | 2022-06-29 00:00 | POTASSIUM CHLORIDE | [facility] | + + + + | 2022-06-29 00:00 | CYANOCOBALAMIN (VITAMIN | [facility] | | | B-12) | | + + + + | 2022-06-29 00:00 | FUROSEMIDE | [facility] | + + + + | 2022-06-29 00:00 | ASPIRIN | [facility] | + + + + | 2022-08-01 00:00 | ASPIRIN | [facility] | + + + + | 2023-07-08 00:00 | ASPIRIN | [facility] | + + + + | 2022-06-29 00:00 | TIZANIDINE HCL | [facility] | + + + + | 2022-07-31 00:00 | DULOXETINE HCL | [facility] | + + + + | 2022-08-01 00:00 | DULOXETINE HCL | [facility] | + + + + | 2023-07-08 00:00 | DULOXETINE HCL | [facility] | + + + + | 2022-06-29 00:00 | TRAMADOL HCL | [facility] | + + + + | 2022-07-31 00:00 | TRAMADOL HCL | [facility] | + + + + | 2022-08-01 00:00 | TRAMADOL HCL | [facility] | + + + + | 2023-07-08 00:00 | TRAMADOL HCL | [facility] | + + + + | 2022-06-29 00:00 | HYDROCODONE | [facility] | | | BIT/ACETAMINOPHEN | | + + + + | 2022-08-01 00:00 | HYDROCODONE | [facility] | | | BIT/ACETAMINOPHEN | | + + + + | 2023-07-08 00:00 | HYDROCODONE | [facility] | | | BIT/ACETAMINOPHEN | | + + + + | 2022-06-29 00:00 | METOPROLOL SUCCINATE | [facility] | + + + + | 2022-08-01 00:00 | METOPROLOL SUCCINATE | [facility] | + + + + | 2023-07-08 00:00 | METOPROLOL SUCCINATE | [facility] | + + + + | 2022-07-31 00:00 | BUPROPION HCL | [facility] | + + + + | 2022-08-01 00:00 | BUPROPION HCL | [facility] | + + + + | 2023-07-08 00:00 | BUPROPION HCL | [facility] | + + + + | 2022-06-29 00:00 | FEXOFENADINE HCL | [facility] | + + + + | 2022-08-01 00:00 | FEXOFENADINE HCL | [facility] | + + + + | 2023-07-08 00:00 | FEXOFENADINE HCL | [facility] | + + + + Problems + + + + | date | description | facility | + + + + | 2022-07-26 00:00 | Diabetes mellitus | [facility] | + + + + | 2022-07-26 00:00 | Atrial fibrillation | [facility] | + + + + | 2022-07-26 00:00 | Acute kidney injury | [facility] | + + + + | 2022-07-26 00:00 | Altered mental status | [facility] | + + + + | 2023-07-08 00:00 | General patient | [facility] | | | noncompliance | | + + + + | 2023-07-08 09:35 | TYPE 2 DIABETES MELLITUS | [facility] | | | WITHOUT COMPLICATIONS | | + + + + | 2023-07-08 09:35 | NICOTINE DEPENDENCE, | [facility] | | | UNSPECIFIED, UNCOMPLICATED | | + + + + | 2023-07-08 09:35 | 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 | | + + + + | 2023-07-08 09:35 | Essential (primary) | [facility] | | | hypertension | | + + + + | 2023-07-08 09:35 | UNSPECIFIED ATRIAL | [facility] | | | FIBRILLATION | | + + + + | 2023-07-08 09:35 | WEAKNESS | [facility] | + + + + | 2023-07-08 09:35 | NURSING HOME (CURRENT) USE OF | [facility] | | | ANTICOAGULANTS | | + + + + | 2023-07-08 09:35 | WATERWORKS OPERATOR (CURRENT) USE OF | [facility] | | | INSULIN | | + + + + | 2023-07-08 09:35 | NURSING HOME (CURRENT) USE OF | [facility] | | | ORAL HYPOGLYCEMIC DRUGS | | + + + + | 2023-07-08 09:35 | OTHER NURSING HOME (CURRENT) | [facility] | | | DRUG THERAPY | | + + + + Procedures No information. Results/Labs +--------+--------+ +---------+--------+---------+ | test | date | facility | value | unit | notes | +--------+--------+ +---------+--------+---------+ + + | Result panel 1 | + + + + + +--------+ + + | | 2022-07-26 | [facility] | 13.7 | (missing) | (missing) | | (unavailable | 13:29 | [facility] | | | | + + + +--------+ + + + + | Result panel 2 | + + + + + +--------+ + + | | 2022-07-26 | [facility] | 1.07 | (missing) | (missing) | | (unavailable | 13:29 | [facility] | | | | + + + +--------+ + + + + | Result panel 3 | + + + + + + + + + | | 2022-07-26 | [facility] | YELLOW | (missing) | (missing) | | (unavailable | 13:44 | [facility] | | | | + + + + + + + + + | Result panel 4 | + + + + + +---------+ + + | | 2022-07-26 | [facility] | CLEAR | (missing) | (missing) | | (unavailable | 13:44 | [facility] | | | | + + + +---------+ + + + + | Result panel 5 | + + + + + + + + + | | 2022-07-26 | [facility] | MODERATE | (missing) | (missing) | | (unavailable | 13:44 | [facility] | | | | + + + + + + + + + | Result panel 6 | + + + + + + + + + | | 2022-07-26 | [facility] | NEGATIVE | (missing) | (missing) | | (unavailable | 13:44 | [facility] | | | | + + + + + + + + + | Result panel 7 | + + + + + +---------+ + + | | 2022-07-26 | [facility] | SMALL | (missing) | (missing) | | (unavailable | 13:44 | [facility] | | | | + + + +---------+ + + + + | Result panel 8 | + + + + + +---------+ + + | | 2022-07-26 | [facility] | 1.025 | (missing) | (missing) | | (unavailable | 13:44 | [facility] | | | | + + + +---------+ + + + + | Result panel 9 | + + + + + + + + + | | 2022-07-26 | [facility] | TRACE-L | (missing) | (missing) | | (unavailable | 13:44 | [facility] | | | | + + + + + + + + + | Result panel 10 | + + + + + +-------+ + + | | 2022-07-26 | [facility] | 6.0 | (missing) | (missing) | | (unavailable | 13:44 | [facility] | | | | + + + +-------+ + + + + | Result panel 11 | + + + + + + + + + | | 2022-07-26 | [facility] | NEGATIVE | (missing) | (missing) | | (unavailable | 13:44 | [facility] | | | | + + + + + + + + + | Result panel 12 | + + + + + + + + + | | 2022-07-26 | [facility] | NORMAL | (missing) | (missing) | | (unavailable | 13:44 | [facility] | | | | + + + + + + + + + | Result panel 13 | + + + + + + + + + | | 2022-07-26 | [facility] | NEGATIVE | (missing) | (missing) | | (unavailable | 13:44 | [facility] | | | | + + + + + + + + + | Result panel 14 | + + + + + + + + + | | 2022-07-26 | [facility] | NEGATIVE | (missing) | (missing) | | (unavailable | 13:44 | [facility] | | | | + + + + + + + + + | Result panel 15 | + + + + + + + + + | | 2022-07-26 | [facility] | NEGATIVE | (missing) | (missing) | | (unavailable | 13:44 | [facility] | | | | + + + + + + + + + | Result panel 16 | + + + + + + + + + | | 2022-07-26 | [facility] | NEGATIVE | (missing) | (missing) | | (unavailable | 13:44 | [facility] | | | | + + + + + + + + + | Result panel 17 | + + + + + + + + + | | 2022-07-26 | [facility] | NEGATIVE | (missing) | (missing) | | (unavailable | 13:44 | [facility] | | | | + + + + + + + + + | Result panel 18 | + + + + + + + + + | | 2022-07-26 | [facility] | POSITIVE | (missing) | (missing) | | (unavailable | 13:44 | [facility] | | | | + + + + + + + + + | Result panel 19 | + + + + + + + + + | | 2022-07-26 | [facility] | NEGATIVE | (missing) | (missing) | | (unavailable | 13:44 | [facility] | | | | + + + + + + + + + | Result panel 20 | + + + + + + + + + | | 2022-07-26 | [facility] | NEGATIVE | (missing) | (missing) | | (unavailable | 13:44 | [facility] | | | | + + + + + + + + + | Result panel 21 | + + + + + + + + + | | 2022-07-26 | [facility] | NEGATIVE | (missing) | (missing) | | (unavailable | 13:44 | [facility] | | | | + + + + + + + + + | Result panel 22 | + + + + + + + + + | | 2022-07-26 | [facility] | NEGATIVE | (missing) | (missing) | | (unavailable | 13:44 | [facility] | | | | + + + + + + + + + | Result panel 23 | + + + + + + + + + | | 2022-07-26 | [facility] | NEGATIVE | (missing) | (missing) | | (unavailable | 13:44 | [facility] | | | | + + + + + + + + + | Result panel 24 | + + + + + + + + + | | 2022-07-26 | [facility] | NEGATIVE | (missing) | (missing) | | (unavailable | 13:44 | [facility] | | | | + + + + + + + + + | Result panel 25 | + + + + + + + + + | | 2022-07-26 | [facility] | NEGATIVE | (missing) | (missing) | | (unavailable | 13:44 | [facility] | | | | + + + + + + + + + | Result panel 26 | + + + + + + + + + | | 2022-07-26 | [facility] | NEGATIVE | (missing) | (missing) | | (unavailable | 13:44 | [facility] | | | | + + + + + + + + + | Result panel 27 | + + + + + + + + + | | 2022-07-26 | [facility] | NEGATIVE | (missing) | (missing) | | (unavailable | 13:44 | [facility] | | | | + + + + + + + + + | Result panel 28 | + + + + + +--------+ + + | | 2022-07-27 | [facility] | 12.8 | (missing) | (missing) | | (unavailable | 05:55 | [facility] | | | | + + + +--------+ + + + + | Result panel 29 | + + + + + +-------+ + + | | 2022-07-27 | [facility] | 0.9 | (missing) | (missing) | | (unavailable | 05:55 | [facility] | | | | + + + +-------+ + + + + | Result panel 30 | + + + + + +-------+ + + | | 2022-07-27 | [facility] | 0.4 | (missing) | (missing) | | (unavailable | 05:55 | [facility] | | | | + + + +-------+ + + + + | Result panel 31 | + + + + + +-------+ + + | | 2022-07-27 | [facility] | 6.6 | (missing) | (missing) | | (unavailable | 05:55 | [facility] | | | | + + + +-------+ + + + + | Result panel 32 | + + + + + +-------+ + + | | 2022-07-27 | [facility] | 2.6 | (missing) | (missing) | | (unavailable | 05:55 | [facility] | | | | + + + +-------+ + + + + | Result panel 33 | + + + + + +-------+ + + | | 2022-07-27 | [facility] | 4.0 | (missing) | (missing) | | (unavailable | 05:55 | [facility] | | | | + + + +-------+ + + + + | Result panel 34 | + + + + + +--------+ + + | | 2022-07-27 | [facility] | 0.65 | (missing) | (missing) | | (unavailable | 05:55 | [facility] | | | | + + + +--------+ + + + + | Result panel 35 | + + + + + +-------+ + + | | 2022-07-27 | [facility] | 0.7 | (missing) | (missing) | | (unavailable | 05:55 | [facility] | | | | + + + +-------+ + + + + | Result panel 36 | + + + + + +------+ + + | | 2022-07-27 | [facility] | 44 | (missing) | (missing) | | (unavailable | 05:55 | [facility] | | | | + + + +------+ + + + + | Result panel 37 | + + + + + +------+ + + | | 2022-07-27 | [facility] | 30 | (missing) | (missing) | | (unavailable | 05:55 | [facility] | | | + + + +------+ + + + + | Result panel 38 | + + + + + +------+ + + | | 2022-07-27 | [facility] | 85 | (missing) | (missing) | | (unavailable | 05:55 | [facility] | | | | + + + +------+ + + + + | Result panel 39 | + + + + + +--------+ + + | | 2022-07-27 | [facility] | 11.5 | (missing) | (missing) | | (unavailable | 05:55 | [facility] | | | | + + + +--------+ + + + + | Result panel 40 | + + + + + +--------+ + + | | 2022-07-27 | [facility] | 3.71 | (missing) | (missing) | | (unavailable | 05:55 | [facility] | | | | + + + +--------+ + + + + | Result panel 41 | + + + + + +--------+ + + | | 2022-07-27 | [facility] | 11.5 | (missing) | (missing) | | (unavailable | 05:55 | [facility] | | | | + + + +--------+ + + + + | Result panel 42 | + + + + + +--------+ + + | | 2022-07-27 | [facility] | 34.8 | (missing) | (missing) | | (unavailable | 05:55 | [facility] | | | | + + + +--------+ + + + + | Result panel 43 | + + + + + +--------+ + + | | 2022-07-27 | [facility] | 93.7 | (missing) | (missing) | | (unavailable | 05:55 | [facility] | | | | + + + +--------+ + + + + | Result panel 44 | + + + + + +--------+ + + | | 2022-07-27 | [facility] | 30.9 | (missing) | (missing) | | (unavailable | 05:55 | [facility] | | | | + + + +--------+ + + + + | Result panel 45 | + + + + + +--------+ + + | | 2022-07-27 | [facility] | 32.9 | (missing) | (missing) | | (unavailable | 05:55 | [facility] | | | | + + + +--------+ + + + + | Result panel 46 | + + + + + +--------+ + + | | 2022-07-27 | [facility] | 13.6 | (missing) | (missing) | | (unavailable | 05:55 | [facility] | | | | + + + +--------+ + + + + | Result panel 47 | + + + + + +-------+ + + | | 2022-07-27 | [facility] | 269 | (missing) | (missing) | | (unavailable | 05:55 | [facility] | | | + + + +-------+ + + + + | Result panel 48 | + + + + + +--------+ + + | | 2022-07-27 | [facility] | 70.3 | (missing) | (missing) | | (unavailable | 05:55 | [facility] | | | | + + + +--------+ + + + + | Result panel 49 | + + + + + +--------+ + + | | 2022-07-27 | [facility] | 15.6 | (missing) | (missing) | | (unavailable | 05:55 | [facility] | | | | + + + +--------+ + + + + | Result panel 50 | + + + + + +-------+---------+ + | | 2022-07-29 | [facility] | 2.4 | mg/dL | (missing) | | (unavailable | 14:57 | [facility] | | | | + + + +-------+---------+ + + + | Result panel 51 | + + + + + +-------+---------+ + | | 2022-07-31 | [facility] | 181 | mg/dL | (missing) | | (unavailable | 06:43 | [facility] | | | | + + + +-------+---------+ + + + | Result panel 52 | + + + + + +------+---------+ + | | 2022-07-31 | [facility] | 14 | mg/dL | (missing) | | (unavailable | 06:43 | [facility] | | | | + + + +------+---------+ + + + | Result panel 53 | + + + + + +--------+---------+ + | | 2022-07-31 | [facility] | 1.00 | mg/dL | (missing) | | (unavailable | 06:43 | [facility] | | | | + + + +--------+---------+ + + + | Result panel 54 | + + + + + +------+ + + | | 2022-07-31 | [facility] | 57 | (missing) | (missing) | | (unavailable | 06:43 | [facility] | | | | + + + +------+ + + + + | Result panel 55 | + + + + + +---------+ + + | | 2022-07-31 | [facility] | 14.00 | (missing) | (missing) | | (unavailable | 06:43 | [facility] | | | | + + + +---------+ + + + + | Result panel 56 | + + + + + +-------+ + + | | 2022-07-31 | [facility] | 140 | (missing) | (missing) | | (unavailable | 06:43 | [facility] | | | | + + + +-------+ + + + + | Result panel 57 | + + + + + +-------+ + + | | 2022-07-31 | [facility] | 4.1 | (missing) | (missing) | | (unavailable | 06:43 | [facility] | | | | + + + +-------+ + + + + | Result panel 58 | + + + + + +-------+ + + | | 2022-07-31 | [facility] | 105 | (missing) | (missing) | | (unavailable | 06:43 | [facility] | | | | + + + +-------+ + + + + | Result panel 59 | + + + + + +------+ + + | | 2022-07-31 | [facility] | 26 | (missing) | (missing) | | (unavailable | 06:43 | [facility] | | | | + + + +------+ + + + + | Result panel 60 | + + + + + +--------+ + + | | 2022-07-31 | [facility] | 13.1 | (missing) | (missing) | | (unavailable | 06:43 | [facility] | | | | + + + +--------+ + + + + | Result panel 61 | + + + + + +-------+---------+ + | | 2022-07-31 | [facility] | 9.9 | mg/dL | (missing) | | (unavailable | 06:43 | [facility] | | | | + + + +-------+---------+ + + + | Result panel 62 | + + + + + +-------+ + + | | 2022-07-31 | [facility] | 220 | (missing) | (missing) | | (unavailable | 06:43 | [facility] | | | | + + + +-------+ + + + + | Result panel 63 | + + + + + + + + + | | 2022-07-31 | [facility] | NEGATIVE | (missing) | (missing) | | (unavailable | 17:36 | [facility] | | | | + + + + + + + + + | Result panel 64 | + + + + + +-------+ + + | | 2022-08-01 | [facility] | 180 | (missing) | (missing) | | (unavailable | 07:44 | [facility] | | | | + + + +-------+ + + + + | Result panel 65 | + + + + + +-------+ + + | | 2023-07-08 | [facility] | 8.2 | (missing) | (missing) | | (unavailable | 09:43:07 [facility] | | | | + + + +-------+ + + + + | Result panel 66 | + + + + + +--------+ + + | | 2023-07-08 | [facility] | 71.4 | (missing) | (missing) | | (unavailable | 09:43:07 [facility] | | | | + + + +--------+ + + + + | Result panel 67 | + + + + + +--------+ + + | | 2023-07-08 | [facility] | 16.9 | (missing) | (missing) | | (unavailable | 09:43:07 [facility] | | | | + + + +--------+ + + + + | Result panel 68 | + + + + + +-------+ + + | | 2023-07-08 | [facility] | 9.3 | (missing) | (missing) | | (unavailable | 09:43:07 [facility] | | | | + + + +-------+ + + + + | Result panel 69 | + + + + + +-------+ + + | | 2023-07-08 | [facility] | 2.1 | (missing) | (missing) | | (unavailable | 09:43:07 [facility] | | | | + + + +-------+ + + + + | Result panel 70 | + + + + + +-------+ + + | | 2023-07-08 | [facility] | 0.3 | (missing) | (missing) | | (unavailable | 09:43:07 [facility] | | | | + + + +-------+ + + + + | Result panel 71 | + + + + + +--------+ + + | | 2023-07-08 | [facility] | 3.54 | (missing) | (missing) | | (unavailable | :43:07 | [facility] | | | | + + + +--------+ + + + + | Result panel 72 | + + + + + +-------+---------+ + | | 2023-07-08 | [facility] | 415 | mg/dL | (missing) | | (unavailable | 09:43:07 [facility] | | | | + + + +-------+---------+ + + + | Result panel 73 | + + + + + +------+---------+ + | | 2023-07-08 | [facility] | 23 | mg/dL | (missing) | | (unavailable | 09:43:07 | [facility] | | | | + + + +------+---------+ + + + | Result panel 74 | + + + + + +--------+ + + | | 2023-07-08 | [facility] | 10.5 | (missing) | (missing) | | (unavailable | 09:43:07 [facility] | | | | + + + +--------+ + + + + | Result panel 75 | + + + + + +--------+---------+ + | | 2023-07-08 | [facility] | 1.13 | mg/dL | (missing) | | (unavailable | :43:07 | [facility] | | | | + + + +--------+---------+ + + + | Result panel 76 | + + + + + +------+ + + | | 2023-07-08 | [facility] | 49 | (missing) | (missing) | | (unavailable | 09:43:07 [facility] | | | | + + + +------+ + + + + | Result panel 77 | + + + + + +---------+ + + | | 2023-07-08 | [facility] | 20.35 | (missing) | (missing) | | (unavailable | 09:43:07 [facility] | | | | + + + +---------+ + + + + | Result panel 78 | + + + + + +-------+ + + | | 2023-07-08 | [facility] | 134 | (missing) | (missing) | | (unavailable | 09:43:07 [facility] | | | | + + + +-------+ + + + + | Result panel 79 | + + + + + +-------+ + + | | 2023-07-08 | [facility] | 3.8 | (missing) | (missing) | | (unavailable | 09:43:07 [facility] | | | | + + + +-------+ + + + + | Result panel 80 | + + + + + +------+ + + | | 2023-07-08 | [facility] | 98 | (missing) | (missing) | | (unavailable | 09:43:07 [facility] | | | | + + + +------+ + + + + | Result panel 81 | + + + + + +------+ + + | | 2023-07-08 | [facility] | 31 | (missing) | (missing) | | (unavailable | 09:43:07 [facility] | | | | + + + +------+ + + + + | Result panel 82 | + + + + + +-------+ + + | | 2023-07-08 | [facility] | 8.8 | (missing) | (missing) | | (unavailable | 09:43:07 [facility] | | | | + + + +-------+ + + + + | Result panel 83 | + + + + + +--------+---------+ + | | 2023-07-08 | [facility] | 10.1 | mg/dL | (missing) | | (unavailable | 09:43:07 | [facility] | | | | + + + +--------+---------+ + + + | Result panel 84 | + + + + + +-------+ + + | | 2023-07-08 | [facility] | 7.1 | (missing) | (missing) | | (unavailable | 09:43:07 [facility] | | | | + + + +-------+ + + + + | Result panel 85 | + + + + + +--------+ + + | | 2023-07-08 | [facility] | 31.9 | (missing) | (missing) | | (unavailable | 09:43:07 | [facility] | | | | + + + +--------+ + + + + | Result panel 86 | + + + + + +-------+ + + | | 2023-07-08 | [facility] | 2.4 | (missing) | (missing) | | (unavailable | 09:43:07 | [facility] | | | | + + + +-------+ + + + + | Result panel 87 | + + + + + +-------+ + + | | 2023-07-08 | [facility] | 4.7 | (missing) | (missing) | | (unavailable | 09:43:07 | [facility] | | | | + + + +-------+ + + + + | Result panel 88 | + + + + + +--------+ + + | | 2023-07-08 | [facility] | 0.51 | (missing) | (missing) | | (unavailable | 09:43:07 | [facility] | | | | + + + +--------+ + + + + | Result panel 89 | + + + + + +-------+ + + | | 2023-07-08 | [facility] | 0.4 | (missing) | (missing) | | (unavailable | 09:43:07 | [facility] | | | | + + + +-------+ + + + + | Result panel 90 | + + + + + +------+ + + | | 2023-07-08 | [facility] | 20 | (missing) | (missing) | | (unavailable | 09:43:07 | [facility] | | | | + + + +------+ + + + + | Result panel 91 | + + + + + +------+ + + | | 2023-07-08 | [facility] | 24 | (missing) | (missing) | | (unavailable | 09:43:07 | [facility] | | | | + + + +------+ + + + + | Result panel 92 | + + + + + +-------+ + + | | 2023-07-08 | [facility] | 190 | (missing) | (missing) | | (unavailable | 09:43:07 | [facility] | | | | + + + +-------+ + + + + | Result panel 93 | + + + + + +--------+ + + | | 2023-07-08 | [facility] | 90.3 | (missing) | (missing) | | (unavailable | 09:43:07 | [facility] | | | | + + + +--------+ + + + + | Result panel 94 | + + + + + +--------+ + + | | 2023-07-08 | [facility] | 29.6 | (missing) | (missing) | | (unavailable | 09:43:07 | [facility] | | | | + + + +--------+ + + + + | Result panel 95 | + + + + + +--------+ + + | | 2023-07-08 | [facility] | 32.8 | (missing) | (missing) | | (unavailable | 09:43:07 | [facility] | | | + + + +--------+ + + + + | Result panel 96 | + + + + + +--------+ + + | | 2023-07-08 | [facility] | 14.5 | (missing) | (missing) | | (unavailable | 09:43:07 | [facility] | | | + + + +--------+ + + + + | Result panel 97 | + + + + + +-------+ + + | | 2023-07-08 | [facility] | 268 | (missing) | (missing) | | (unavailable | 09:43:07 | [facility] | | | + + + +-------+ + + + + | Result panel 98 | + + + + + +-------+ + + | | 2023-07-08 | [facility] | 402 | (missing) | (missing) | | (unavailable | 15:04:07 | [facility] | | | + + + +-------+ + + + + | Result panel 99 | + + + + + + + + + | | 2023-07-08 | [facility] | YELLOW | (missing) | (missing) | | (unavailable | 15:50:07 [facility] | | | | + + + + + + + + + | Result panel 100 | + + + + + +---------+ + + | | 2023-07-08 | [facility] | CLEAR | (missing) | (missing) | | (unavailable | 15:50:07 | [facility] | | | | + + + +---------+ + + + + | Result panel 101 | + + + + + + + + + | | 2023-07-08 | [facility] | >=1000 | (missing) | (missing) | | (unavailable | 15:50:07 | [facility] | | | | + + + + + + + + + | Result panel 102 | + + + + + + + + + | | 2023-07-08 | [facility] | NEGATIVE | (missing) | (missing) | | (unavailable | 15:50:07 | [facility] | | | + + + + + + + + + | Result panel 103 | + + + + + + + + + | | 2023-07-08 | [facility] | NEGATIVE | (missing) | (missing) | | (unavailable | 15:50:07 | [facility] | | | | + + + + + + + + + | Result panel 104 | + + + + + +---------+ + + | | 2023-07-08 | [facility] | 1.010 | (missing) | (missing) | | (unavailable | 15:50:07 | [facility] | | | | + + + +---------+ + + + + | Result panel 105 | + + + + + + + + + | | 2023-07-08 | [facility] | NEGATIVE | (missing) | (missing) | | (unavailable | 15:50:07 | [facility] | | | | + + + + + + + + + | Result panel 106 | + + + + + +-------+ + + | | 2023-07-08 | [facility] | 5.0 | (missing) | (missing) | | (unavailable | 15:50:07 | [facility] | | | + + + +-------+ + + + + | Result panel 107 | + + + + + + + + + | | 2023-07-08 | [facility] | NEGATIVE | (missing) | (missing) | | (unavailable | 15:50:07 [facility] | | | + + + + + + + + + | Result panel 108 | + + + + + + + + + | | 2023-07-08 | [facility] | NORMAL | (missing) | (missing) | | (unavailable | 15:50:07 [facility] | | | + + + + + + + + + | Result panel 109 | + + + + + + + + + | | 2023-07-08 | [facility] | NEGATIVE | (missing) | (missing) | | (unavailable | 15:50:07 [facility] | | | + + + + + + + + + | Result panel 110 | + + + + + + + + + | | 2023-07-08 | [facility] | NEGATIVE | (missing) | (missing) | | (unavailable | 15:50:07 | [facility] | | | | + + + + + + + Social History No information. Vital Signs + + + +---------+ | date | measurement | value | units | + + + +---------+ | 2022-06-29 00:00 | BMI | 28.8 | kg/m2 | + + + +---------+ | 2022-06-29 00:00 | BP_diastolic | 68 | mmHg | + + + +---------+ | 2022-06-29 00:00 | BP_systolic | 113 | mmHg | + + + +---------+ | 2022-06-29 00:00 | heart_rate | 88 | /min | + + + +---------+ | 2022-06-29 00:00 | height_metric | 177.8 | cm | + + + +---------+ | 2022-06-29 00:00 | height_standard | 70 | in | + + + +---------+ | 2022-06-29 00:00 | o2_saturation | 97 | % | + + + +---------+ | 2022-06-29 00:00 | respiration_rate | 18 | /min | + + + +---------+ | 2022-06-29 00:00 | temperature_metric | 36.78 | C | | | | | | + + + +---------+ | 2022-06-29 00:00 | | 98.2 | F | | | temperature_standar | | | | | d | | | + + + +---------+ | 2022-06-29 00:00 | weight_metric | 91.12 | kg | + + + +---------+ | 2022-06-29 00:00 | weight_standard | 200.88 | lb | + + + +---------+ | 2022-06-29 00:00 | weight_standard | 200.89 | lb | + + + +---------+ | 2022-07-27 00:00 | BMI | 28.8 | kg/m2 | + + + +---------+ | 2022-07-27 00:00 | height_metric | 177.8 | cm | + + + +---------+ | 2022-07-27 00:00 | height_standard | 70 | in | + + + +---------+ | 2022-07-27 00:00 | weight_metric | 91.2 | kg | + + + +---------+ | 2022-07-27 00:00 | weight_standard | 201.06 | lb | + + + +---------+ | 2022-08-01 00:00 | BP_diastolic | 68 | mmHg | + + + +---------+ | 2022-08-01 00:00 | BP_systolic | 143 | mmHg | + + + +---------+ | 2022-08-01 00:00 | heart_rate | 104 | /min | + + + +---------+ | 2022-08-01 00:00 | o2_saturation | 97 | % | + + + +---------+ | 2022-08-01 00:00 | respiration_rate | 18 | /min | + + + +---------+ | 2022-08-01 00:00 | temperature_metric | 36.67 | C | | | | | | + + + +---------+ | 2022-08-01 00:00 | | 98 | F | | | temperature_standar | | | | | d | | | + + + +---------+ | 2023-07-08 00:00 | BMI | 25.0 | kg/m2 | + + + +---------+ | 2023-07-08 00:00 | BP_diastolic | 53 | mmHg | + + + +---------+ | 2023-07-08 00:00 | BP_systolic | 122 | mmHg | + + + +---------+ | 2023-07-08 00:00 | heart_rate | 87 | /min | + + + +---------+ | 2023-07-08 00:00 | height_metric | 177.8 | cm | + + + +---------+ | 2023-07-08 00:00 | height_standard | 70 | in | + + + +---------+ | 2023-07-08 00:00 | o2_saturation | 98 | % | + + + +---------+ | 2023-07-08 00:00 | respiration_rate | 14 | /min | + + + +---------+ | 2023-07-08 00:00 | temperature_metric | 37.33 | C | | | | | | + + + +---------+ | 2023-07-08 00:00 | | 99.2 | F | | | temperature_standar | | | | | d | | | + + + +---------+ | 2023-07-08 00:00 | weight_metric | 78.92 | kg | + + + +---------+ | 2023-07-08 00:00 | weight_metric | 78.93 | kg | + + + +---------+ | 2023-07-08 00:00 | weight_standard | 174 | lb | + + + +---------+"
--- OUTSIDE RECORDS SUMMARY | ~2023-07-16 | XMS | Continuity of Care Document ---
Demographics + + + | Address | [address] | | | [place] [address] | + + + | Preferred Language | Unknown | + + + | Marital Status | Never | + + + | Orthodoxy Affiliation | Unknown | + + + | Race | White | + + + | Ethnic Group | Not or | + + + Author + + + | Author | [facility] | + + + | Organization | [facility] | + + + | Address | [address] [facility] [address] [facility] [address] [facility] | | | [place] [address] | + + + | Phone | | + + + Care Team Providers + + + + | Care Waiter/Waitress Informal Name | Role | Phone | + [...] + | 2022-06-29 00:00 | TERBINAFINE | [facility] | + + + + | 2022-08-01 00:00 | TERBINAFINE | [facility] | + + + + | 2023-07-08 00:00 | TERBINAFINE | [facility] | + + + + | 2022-06-29 00:00 | APIXABAN | [facility] | + + + + | 2022-08-01 00:00 | APIXABAN | [facility] | + + + + | 2023-07-08 00:00 | APIXABAN | [facility] | + + + + | 2022-06-29 00:00 | FLUTICASONE PROPIONATE 50 | [facility] | | | MCG | | + + + + | 2022-08-01 00:00 | FLUTICASONE PROPIONATE 50 | [facility] | | | MCG | | + + + + | 2023-07-08 00:00 | FLUTICASONE PROPIONATE 50 | [facility] | | | MCG | | + + + + | 2022-06-29 00:00 | FLUTICASONE PROPIONATE | [facility] | + + + + | 2022-08-01 00:00 | FLUTICASONE PROPIONATE | [facility] | + + + + | 2023-07-08 00:00 | FLUTICASONE PROPIONATE | [facility] | + + + + | 2022-06-29 00:00 | | [facility] | | | LISINOPRIL/HYDROCHLOROTHIAZ | | | | LUZ | | + + + + | 2022-06-29 00:00 | NICOTINE 21MG | [facility] | + + + + | 2022-08-01 00:00 | NICOTINE 21MG | [facility] | + + + + | 2023-07-08 00:00 | NICOTINE 21MG | [facility] | + + + + | 2022-06-29 00:00 | PIROXICAM | [facility] | + + + + | 2022-08-01 00:00 | PIROXICAM | [facility] | + + + + | 2023-07-08 00:00 | PIROXICAM | [facility] | + + + + | 2022-06-29 00:00 | SIMVASTATIN | [facility] | + + + + | 2022-08-01 00:00 | SIMVASTATIN | [facility] | + + + + | 2023-07-08 00:00 | SIMVASTATIN | [facility] | + + + + | 2022-06-29 00:00 | FOLIC ACID | [facility] | + + + + | 2022-08-01 00:00 | FOLIC ACID | [facility] | + + + + | 2023-07-08 00:00 | FOLIC ACID | [facility] | + + + + | 2022-06-29 00:00 | PYRIDOXINE HCL | [facility] | + + + + | 2022-06-29 00:00 | TEMAZEPAM | [facility] | + + + + | 2022-08-01 00:00 | TEMAZEPAM | [facility] | + + + + | 2023-07-08 00:00 | TEMAZEPAM | [facility] | + + + + | 2022-06-29 00:00 | TEMAZEPAM | [facility] | + + + + | 2022-06-29 00:00 | CELECOXIB | [facility] | + + + + | 2022-06-29 00:00 | GABAPENTIN | [facility] | + + + + | 2022-06-29 00:00 | GLIPIZIDE | [facility] | + + + + | 2022-08-01 00:00 | GLIPIZIDE | [facility] | + + + + | 2023-07-08 00:00 | GLIPIZIDE | [facility] | + + + + | 2022-06-29 00:00 | POTASSIUM CHLORIDE | [facility] | + + + + | 2022-06-29 00:00 | CYANOCOBALAMIN (VITAMIN | [facility] | | | B-12) | | + + + + | 2022-06-29 00:00 | FUROSEMIDE | [facility] | + + + + | 2022-06-29 00:00 | ASPIRIN | [facility] | + + + + | 2022-08-01 00:00 | ASPIRIN | [facility] | + + + + | 2023-07-08 00:00 | ASPIRIN | [facility] | + + + + | 2022-06-29 00:00 | TIZANIDINE HCL | [facility] | + + + + | 2022-07-31 00:00 | DULOXETINE HCL | [facility] | + + + + | 2022-08-01 00:00 | DULOXETINE HCL | [facility] | + + + + | 2023-07-08 00:00 | DULOXETINE HCL | [facility] | + + + + | 2022-06-29 00:00 | TRAMADOL HCL | [facility] | + + + + | 2022-07-31 00:00 | TRAMADOL HCL | [facility] | + + + + | 2022-08-01 00:00 | TRAMADOL HCL | [facility] | + + + + | 2023-07-08 00:00 | TRAMADOL HCL | [facility] | + + + + | 2022-06-29 00:00 | HYDROCODONE | [facility] | | | BIT/ACETAMINOPHEN | | + + + + | 2022-08-01 00:00 | HYDROCODONE | [facility] | | | BIT/ACETAMINOPHEN | | + + + + | 2023-07-08 00:00 | HYDROCODONE | [facility] | | | BIT/ACETAMINOPHEN | | + + + + | 2022-06-29 00:00 | METOPROLOL SUCCINATE | [facility] | + + + + | 2022-08-01 00:00 | METOPROLOL SUCCINATE | [facility] | + + + + | 2023-07-08 00:00 | METOPROLOL SUCCINATE | [facility] | + + + + | 2022-07-31 00:00 | BUPROPION HCL | [facility] | + + + + | 2022-08-01 00:00 | BUPROPION HCL | [facility] | + + + + | 2023-07-08 00:00 | BUPROPION HCL | [facility] | + + + + | 2022-06-29 00:00 | FEXOFENADINE HCL | [facility] | + + + + | 2022-08-01 00:00 | FEXOFENADINE HCL | [facility] | + + + + | 2023-07-08 00:00 | FEXOFENADINE HCL | [facility] | + + + + Problems + + + + | date | description | facility | + + + + | 2022-07-26 00:00 | Diabetes mellitus | [facility] | + + + + | 2022-07-26 00:00 | Atrial fibrillation | [facility] | + + + + | 2022-07-26 00:00 | Acute kidney injury | [facility] | + + + + | 2022-07-26 00:00 | Altered mental status | [facility] | + + + + | 2023-07-08 00:00 | General patient | [facility] | | | noncompliance | | + [...] + + + | 2023-07-08 09:35 | SHELTER (CURRENT) USE OF | [facility] | | | ANTICOAGULANTS | | + + + + | 2023-07-08 09:35 | POSTBED STITCHER (CURRENT) USE OF | [facility] | | | INSULIN | | + + + + | 2023-07-08 09:35 | SHELTER (CURRENT) USE OF | [facility] | | | ORAL HYPOGLYCEMIC DRUGS | | + + + + | 2023-07-08 09:35 | OTHER SHELTER (CURRENT) | [facility] | | | DRUG [...]
--- OUTSIDE RECORDS SUMMARY | ~2023-07-16 | XMS | Continuity of Care Document ---
Demographics + + + | Address | [address] | | | [place] [address] | + + + | Preferred Language | Unknown | + + + | Marital Status | Never | + + + | Pentecostal Affiliation | Unknown | + + + | Race | White | + + + | Ethnic Group | Not or | + + + Author + + + | Author | [facility] | + + + | Organization | [facility] | + + + | Address | [address] [facility] [facility] | | | [place] [address] | + + + | Phone | | + + + Care Team Providers + + + + | Care Closing Specialist Name | Role | Phone | + [...] | 2022-06-29 00:00 | TERBINAFINE | [facility] | + + + + | 2022-08-01 00:00 | TERBINAFINE | [facility] | + + + + | 2023-07-08 00:00 | TERBINAFINE | [facility] | + + + + | 2022-06-29 00:00 | APIXABAN | [facility] | + + + + | 2022-08-01 00:00 | APIXABAN | [facility] | + + + + | 2023-07-08 00:00 | APIXABAN | [facility] | + + + + | 2022-06-29 00:00 | FLUTICASONE PROPIONATE 50 | [facility] | | | MCG | | + + + + | 2022-08-01 00:00 | FLUTICASONE PROPIONATE 50 | [facility] | | | MCG | | + + + + | 2023-07-08 00:00 | FLUTICASONE PROPIONATE 50 | [facility] | | | MCG | | + + + + | 2022-06-29 00:00 | FLUTICASONE PROPIONATE | [facility] | + + + + | 2022-08-01 00:00 | FLUTICASONE PROPIONATE | [facility] | + + + + | 2023-07-08 00:00 | FLUTICASONE PROPIONATE | [facility] | + + + + | 2022-06-29 00:00 | | [facility] | | | LISINOPRIL/HYDROCHLOROTHIAZ | | | | LUZ | | + + + + | 2022-06-29 00:00 | NICOTINE 21MG | [facility] | + + + + | 2022-08-01 00:00 | NICOTINE 21MG | [facility] | + + + + | 2023-07-08 00:00 | NICOTINE 21MG | [facility] | + + + + | 2022-06-29 00:00 | PIROXICAM | [facility] | + + + + | 2022-08-01 00:00 | PIROXICAM | [facility] | + + + + | 2023-07-08 00:00 | PIROXICAM | [facility] | + + + + | 2022-06-29 00:00 | SIMVASTATIN | [facility] | + + + + | 2022-08-01 00:00 | SIMVASTATIN | [facility] | + + + + | 2023-07-08 00:00 | SIMVASTATIN | [facility] | + + + + | 2022-06-29 00:00 | FOLIC ACID | [facility] | + + + + | 2022-08-01 00:00 | FOLIC ACID | [facility] | + + + + | 2023-07-08 00:00 | FOLIC ACID | [facility] | + + + + | 2022-06-29 00:00 | PYRIDOXINE HCL | [facility] | + + + + | 2022-06-29 00:00 | TEMAZEPAM | [facility] | + + + + | 2022-08-01 00:00 | TEMAZEPAM | [facility] | + + + + | 2023-07-08 00:00 | TEMAZEPAM | [facility] | + + + + | 2022-06-29 00:00 | TEMAZEPAM | [facility] | + + + + | 2022-06-29 00:00 | CELECOXIB | [facility] | + + + + | 2022-06-29 00:00 | GABAPENTIN | [facility] | + + + + | 2022-06-29 00:00 | GLIPIZIDE | [facility] | + + + + | 2022-08-01 00:00 | GLIPIZIDE | [facility] | + + + + | 2023-07-08 00:00 | GLIPIZIDE | [facility] | + + + + | 2022-06-29 00:00 | POTASSIUM CHLORIDE | [facility] | + + + + | 2022-06-29 00:00 | CYANOCOBALAMIN (VITAMIN | [facility] | | | B-12) | | + + + + | 2022-06-29 00:00 | FUROSEMIDE | [facility] | + + + + | 2022-06-29 00:00 | ASPIRIN | [facility] | + + + + | 2022-08-01 00:00 | ASPIRIN | [facility] | + + + + | 2023-07-08 00:00 | ASPIRIN | [facility] | + + + + | 2022-06-29 00:00 | TIZANIDINE HCL | [facility] | + + + + | 2022-07-31 00:00 | DULOXETINE HCL | [facility] | + + + + | 2022-08-01 00:00 | DULOXETINE HCL | [facility] | + + + + | 2023-07-08 00:00 | DULOXETINE HCL | [facility] | + + + + | 2022-06-29 00:00 | TRAMADOL HCL | [facility] | + + + + | 2022-07-31 00:00 | TRAMADOL HCL | [facility] | + + + + | 2022-08-01 00:00 | TRAMADOL HCL | [facility] | + + + + | 2023-07-08 00:00 | TRAMADOL HCL | [facility] | + + + + | 2022-06-29 00:00 | HYDROCODONE | [facility] | | | BIT/ACETAMINOPHEN | | + + + + | 2022-08-01 00:00 | HYDROCODONE | [facility] | | | BIT/ACETAMINOPHEN | | + + + + | 2023-07-08 00:00 | HYDROCODONE | [facility] | | | BIT/ACETAMINOPHEN | | + + + + | 2022-06-29 00:00 | METOPROLOL SUCCINATE | [facility] | + + + + | 2022-08-01 00:00 | METOPROLOL SUCCINATE | [facility] | + + + + | 2023-07-08 00:00 | METOPROLOL SUCCINATE | [facility] | + + + + | 2022-07-31 00:00 | BUPROPION HCL | [facility] | + + + + | 2022-08-01 00:00 | BUPROPION HCL | [facility] | + + + + | 2023-07-08 00:00 | BUPROPION HCL | [facility] | + + + + | 2022-06-29 00:00 | FEXOFENADINE HCL | [facility] | + + + + | 2022-08-01 00:00 | FEXOFENADINE HCL | [facility] | + + + + | 2023-07-08 00:00 | FEXOFENADINE HCL | [facility] | + + + + Problems + + + + | date | description | facility | + + + + | 2022-07-26 00:00 | Diabetes mellitus | [facility] | + + + + | 2022-07-26 00:00 | Atrial fibrillation | [facility] | + + + + | 2022-07-26 00:00 | Acute kidney injury | [facility] | + + + + | 2022-07-26 00:00 | Altered mental status | [facility] | + + + + | 2023-07-08 00:00 | General patient | [facility] | | | noncompliance | [...] + + + | 2023-07-08 09:35 | PRISON (CURRENT) USE OF | [facility] | | | ANTICOAGULANTS | | + + + + | 2023-07-08 09:35 | CONTOUR PATH TAPE MILL OPERATOR (CURRENT) USE OF | [facility] | | | INSULIN | | + + + + | 2023-07-08 09:35 | PRISON (CURRENT) USE OF | [facility] | | | ORAL HYPOGLYCEMIC DRUGS | | + + + + | 2023-07-08 09:35 | OTHER PRISON (CURRENT) | [facility] | | | DRUG [...]
[~2023-07-16 11:28] MED LIST changes: +BUPROPION XL300 MG PO; +DULOXETINE HCL20 MG PO; +GLIPIZIDE5 MG PO; +LISINOPRIL-HCT1 EAC2 PO; +OZEMPIC0.25 MG/0. SUB-Q
--- OUTSIDE RECORDS SUMMARY | 2023-07-16 11:31 | XMS ---
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 Justo VISIT COUNT (12 MO.) 3 KORIN Pérez TOTAL 3 NOTE: Visits indicate total known visits. 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 - Nicotine dependence, unspecified, uncomplicated - Other salvage determiner (current) drug therapy - Type 2 diabetes mellitus without complications - Unspecified atrial fibrillation - Weakness 07/26/2022 13:20 [facility] [place] TYPE: Emergency COMPLAINT: - FALL INPATIENT VISIT TRACKING (12 MO.) 07/27/2022 11:47 [facility] [place] TYPE: Medical Surgical COMPLAINT: - ACUTE ENCEPHALOPATHY DIAGNOSES: - Acquired absence of other specified parts of digestive tract - Acquired absence of other specified parts of digestive tract - Acute kidney failure, unspecified - Acute kidney failure, unspecified - Contact with and (suspected) exposure to COVID-19 - Contact with and (suspected) exposure to COVID-19 - Dorsalgia, unspecified - Dorsalgia, unspecified - Exposure to other specified factors, initial encounter - Exposure to other specified factors, initial encounter - Hypokalemia - Hypokalemia - Hypomagnesemia - Hypomagnesemia - oil heaterman (current) use of anticoagulants - USP (current) use of anticoagulants - oil heaterman (current) use of oral hypoglycemic drugs - USP (current) use of oral hypoglycemic drugs - Other salvage determiner (current) drug therapy - Other group home (current) drug therapy - Other toxic encephalopathy - Other toxic encephalopathy - Poisoning by benzodiazepines, accidental (unintentional), initial encounter - Rhabdomyolysis - Rhabdomyolysis - Type 2 diabetes mellitus without complications - Type 2 diabetes mellitus without complications - Unspecified atrial fibrillation - Unspecified atrial fibrillation [email or web address]
[2023-07-16] MEDS ORDERED: DOXYCYCLINE MO100 MG PO (11:33)
[2023-07-16 12:11] LABS: BASOPHILS 2.4 % (0-2); EOSINOPHILS 1.4 % (0-6); HEMOGLOBIN 10.7 g/dL (12.0-18.0); LYMPHOCYTES 16.3 % (24-44); MCH 29.2 (27-36); MCHC 32.5 g/dl (30-36); MCV 89.7 fl (81-99); NEUTROPHILS 69.9 % (39-80); PLATELET COUNT 329 K/uL (140-440); RBC 3.68 M/ul (4.3-5.7); RDW 14.6 (10.5-15.0)
[2023-07-16 12:24] LABS: ALBUMIN 2.6 g/dL (3.4-5.0); ALBUMIN/GLOBULIN RATIO 0.52 (1.1-2.4); ANION GAP 10.1 (7-21); BILIRUBIN, TOTAL 0.5 ng/dL (0.2-1.0); BUN/CREATININE RATIO 12.5 (6.0-28.6); CREATININE, SERUM 1.28 mg/dL (0.55-1.02); POTASSIUM 4.1 mmol/L (3.5-5.1); PROTEIN, TOTAL 7.6 g/dL (6.4-8.2)
[2023-07-16 15:08] LABS: BILIRUBIN, URINE NEGATIVE (negative); BLOOD/HGB, URINE NEGATIVE (Negative); KETONE, URINE NEGATIVE (Negative); LEUK ESTERASE, URINE SMALL (negative); NITRITE, URINE NEGATIVE (negative)
[2023-07-16 15:17] LABS: AMPHETAMINES, UR NEGATIVE (NEGATIVE); BARBITURATES, UR NEGATIVE (NEGATIVE); BENZODIAZEPINES, UR NEGATIVE (NEGATIVE); BUPRENORPHINE,UR NEGATIVE (NEGATIVE); COCAINE, UR NEGATIVE (NEGATIVE); MARIJUANA (THC), UR NEGATIVE (NEGATIVE); MDMA, UR NEGATIVE (NEGATIVE); METHADONE, UR NEGATIVE (NEGATIVE); METHAMPHETAMINE, UR NEGATIVE (NEGATIVE); OPIATES, UR NEGATIVE (NEGATIVE); OXYCODONE, UR NEGATIVE (NEGATIVE); PHENCYCLIDINE, UR NEGATIVE (NEGATIVE); TRICYCLIC ANTIDEPRESSANT, UR NEGATIVE (NEGATIVE)
[2023-07-16 15:18] LABS: BACTERIA, URINE RARE /hpf (negative); CASTS, URINE NONE SEEN \\lpf; CRYSTALS, URINE NONE SEEN (0-1+); EPITHELIAL CELLS, URINE NONE SEEN /lpf (0-1+)
[2023-07-16 15:19] LABS: COLLECTION TYPE, URINE CLEAN CATCH; REFLEX CULTURE, URINE Yes (No)
[2023-07-16 16:13] VITALS: BP 120/50
[2023-07-16] MEDS ORDERED: BASAGLAR K100 UNIT/1 SUB-Q (16:29)
[2023-07-16] MEDS ORDERED: DULOXETINE HCL30 MG PO (16:29)
[2023-07-16] MEDS ORDERED: BUPROPION XL150 MG PO (16:31)
--- NOTE | 2023-07-16 17:00 | NUR ---
Checked Pt's blood sugar, reported to RN and recorded. RN x2 in Pt's room; assisted RN with dresssing wounds on feet/calves. No other needs expressed by Pt.
--- NOTE | 2023-07-16 17:44 | NUR ---
[facility] [place] [facility].
--- NOTE | 2023-07-16 17:44 | NUR ---
WOUND CONSULT COMPLETED. PT WITH BILATERAL LOWER EXTREMITY WOUNDS, SCATTERED. PICTURES TAKEN IN ER. KAREN PERFORMED IN ER, SUGGESTIVE OF PAD NON COMPRESSIBLE. ONCE PT ARRIVED TO ROOM, DRESSINGS APPLIED. LEGS CLEANSED WITH WOUND CLEANSER SPRAY, DRIED AND DEBRIDMENT WITH GAUZE. MEASUREMENTS TAKEN. SKIN PROTECTANT WIPES APPLIED TO INTACT SKIN. MEDIHONEY APPLIED TO OPEN ULCERS, COVERED WITH WITH ADAPTIC, ABD PADS AND GAUZE ROLL. DISCUSSED PODIATRY CONSULT WITH MD, WOUND CARE ORDER ENTERED.
--- NOTE | 2023-07-16 19:23 | NUR ---
REPORT RECEIVED FROM DAY SHIFT RN. PT LYING IN BED ALERT AND ORIENTED. DENIES NEEDS. WHITE BOARD UPDATED. CALL LIGHT IN REACH.
--- NOTE | 2023-07-16 20:27 | NUR ---
CALL LIGHT ANSWERED. pt STATES "I CAN'T GET COMFORTABLE AFTER I GOT UP TO THE BATHROOM." PUREWICK IN PLACE, ASSISTED pt TO REPOSITION. CALL LIGHT WITHIN REACH. OXYGEN REMOVED BY pt. SPOT CHECKED, SPO2 100%. pt ON RA.
--- NOTE | 2023-07-16 20:33 | NUR ---
PT MOANING IN PAIN AND UNABLE TO GET COMOFRTABLE. MD NOTIFIED. NEW TELEPHONE ORDERS RECEIVED VERIFIED WITH READBACK METHOD.
[2023-07-16 20:38] VITALS: BP 122/55
--- NOTE | 2023-07-16 21:12 | NUR ---
EVENING ASSESSMENT COMPLETE. SCHEDULED MEDS ADMIN PER EMAR. PRN FOR 10 KNEE/BACK PAIN ADMIN. ASSISTED PT TO REPOSITION FOR COMFORT. WARM BLANKET PROVIDED. DRESSING TO BLE INTACT. HEEL PROTECTORS IN PLACE. PUREWICK IN PLACE. PT DENIES QUESTIONS OR CONCERNS. CALL LIGHT IN REACH. BED ALARM FOR SAFETY.
--- NOTE | 2023-07-16 23:49 | NUR ---
PT RESTING IN BED WITH EYES CLOSED. RESPIRATIONS EVEN. SpO2 98% ON RA. HR 90'S. BED ALARM IN PLACE. CALL LIGHT IN REACH.
--- NOTE | 2023-07-17 04:51 | NUR ---
PT REPOSITIONED IN BED FOR COMFORT. DRESSING TO LLE CHANGED DUE TO SATURATION. PT ANDREA WELL. BLE ELEVATED ON PILLOWS. COFFEE PROVIDED PER REQUEST. NO FURTHER NEEDS.
--- NOTE | 2023-07-17 04:51 | NUR ---
MEDITECH DOWN TIME. SEE PAPER CHART.
[2023-07-17 05:41] VITALS: BP 112/56
[2023-07-17 06:18] LABS: BASOPHILS 0.4 % (0-2); EOSINOPHILS 0.8 % (0-6); HEMATOCRIT 36.3 % (35.0-50.0); HEMOGLOBIN 11.5 g/dL (12.0-18.0); LYMPHOCYTES 12.5 % (24-44); MCHC 31.8 g/dl (30-36); NEUTROPHILS 73.3 % (39-80); PLATELET COUNT 304 K/uL (140-440); RBC 3.99 M/ul (4.3-5.7); RDW 14.9 (10.5-15.0)
[2023-07-17 06:31] LABS: ANION GAP 10.9 (7-21); BUN/CREATININE RATIO 15.38 (6.0-28.6); CREATININE, SERUM 1.04 mg/dL (0.55-1.02); POTASSIUM 3.9 mmol/L (3.5-5.1)
--- NOTE | 2023-07-17 07:25 | NUR ---
HANDOFF REPORT RECEIVED FROM UNDERWRITING SUPPORT SPECIALIST RN. PT SLEEPING, RESPIRATIONS EVEN AND UNLABORED.
--- NOTE | 2023-07-17 08:44 | NUR ---
THIS DRAMATIC DIRECTOR WENT INTO PT ROOM TO APPLY A NEW PUREWICK FOR THE PT. PT IS REQUESTING TO GET INTO THE CHAIR FOR BREAKFAST. THIS DRAMATIC DIRECTOR AND ONE OTHER DRAMATIC DIRECTOR ATTEMPTED TO USE THE ARJUN TO MOVE THE PT. THE ARJUN IN THIS ROOM IS MALFUNCTIONING AND THE PT WAS UNABLE TO BE MOVED. FACILITIES WAS NOTIFIED FOR THIS COMPLAINT. PT IS POSITIONED IN THE SITTING POSITION IN BED WITH PILLOWS POSITIONED FOR COMFORT. CALL LIGHT IN REACH. BREAKFAST TRAY AT THE BEDSIDE. NO NEEDS AT THIS TIME.
--- NOTE | 2023-07-17 08:45 | NUR ---
PT RESTING IN BED, EATING BREAKFATS. PT ON ROOM AIR, LUNG SOUNDS CLEAR WITH DIMINISHED BASES. PT RATES PAIN 10/10 CHRONIC TO KNEES. PT DENIES NAUSEA, TOLERATING 60G CARB DIET WELL, BOWEL TONES ACTIVE. PT WITH RIGHT ARM CONTACTURE AND WEAKNESS, LEFT ARM WNL, PULSES PALPABLE. BLE WEAKNESS, FAINT PULSES, LOWER LEGS WRAPPED IN GAUZE DRESSING. DISCUSSED WITH PT PLAN FOR SHOWER AND DRESSING CHANGE TODAY, PT AGREEABLE. PT DENIES OTHER NEEDS AT THIS TIME.
--- NOTE | 2023-07-17 08:53 | NUR ---
SPOKE WITH [facility], UPDATED ON PATIENT ADMISSION AND PLACE FOR SNF PLACEMENT [place].
[2023-07-17 10:02] VITALS: BP 109/50
--- NOTE | 2023-07-17 10:07 | NUR ---
IN TO BLADDER SCAN PATIENT UPON RN REQUEST. BLADDER SCANNED FOR [id number], RN NOTIFIED.
--- NOTE | 2023-07-17 10:30 | NUR ---
PT BLADDER SCAN READS 315. DR ORDERED STRAIGHT CATH AT 1230 IF NO VOID IS MADE. DR ALSO STATED THAT IF AFTER STRAIGHT CATH IS NEEDED AND THE SAME ISSUE ARISES AGAIN THEN WE WILL SWITCH HER TO INDWELLING CATH. PT IS CURRENTLY IN HER ROOM SITTING UP IN A CHAIR RESTING AND LISTENING TO MUSIC. NO OTHER CARES NEEDED AT THIS TIME. CALL LIGHT WITHIN REACH
--- NOTE | 2023-07-17 10:43 | NUR ---
PT IN CHAIR WITH EYES CLOSED. DID NOT ROUSE TO MY KNOCK. PRAYED. LEFT GUIDEPOST AND CONTACT CARD.
--- NOTE | 2023-07-17 10:55 | NUR ---
Call from Fanny at [facility], unable to take patient due to bed availability. Called and spoke with Carla at [facility]. She did not receive chart, refax at this time.
[2023-07-17] MEDS ORDERED: BASAGLAR K100 UNIT/1 SQ (12:01)
--- NOTE | 2023-07-17 12:44 | NUR ---
MED REC COMPLETE
--- NOTE | 2023-07-17 13:30 | NUR ---
pt bladder scanned for 499 at 1300, pt incontinent of urine, transfered to bed, pericare performed, rescanned for 137 ml. straight cath held at this time, md updated.
[2023-07-17 13:48] VITALS: BP 114/49
--- NOTE | 2023-07-17 15:30 | NUR ---
PT ASSISTED TO CHAIR WITH ARJUN LEHMAN AND JEAN. PT ASKING ABOUT CELL PHONE, NOT IN ROOM, CALL PLACED TO DAUGHTER WHO STATES PT DOES NOT HAVE A CELL PHONE. DAUGHTER BELIEVES PT IS CONFUSED AT TIMES. PT ABLE TO ANSWER ORIENTATION QUESTIONS APPROPRIATELY.
[2023-07-17 18:18] VITALS: BP 114/49
--- NOTE | 2023-07-17 18:35 | NUR ---
PT WORKED WITH P.T., ARJUN LIFT, PAINFUL WITH MOVEMENT. PT ON ROOM AIR, LUNG SOUNDS CLEAR. LOWER LEG DRESSINGS CHANGED THIS EVENING, LEGS WITH IMPROVEMENT FROM ADMISSION, LESS SWELLING AND ERYTHEMA. PT WITH LOW URINE OUTPUT/RETENTION, MD AWARE, BLADDER SCAN NEEDED.
--- NOTE | 2023-07-17 19:45 | NUR ---
PT RESTING IN BED. RESPIRATIONS EVEN AND UNLABORED. NO NEEDS AT THIS TIME. SAFETY PRECAUTIONS IN PLACE. CALL LIGHT WITHIN REACH.
--- NOTE | 2023-07-17 20:00 | NUR ---
PT CALLED. HOB ELEVATED PER RAMSEY OCAMPO. ASSISTED WITH GOWN BACK ON, PT WITH HEADPHONES, STATING THAT SHE CAN'T HEAR WITHOUT THE HEARING DEVICE SHE WAS ATTEMPTING TO GET WORKING. ABLE TO COMMUNICATED, NO OTHER NEEDS.
[2023-07-17 20:49] VITALS: BP 110/47
--- NOTE | 2023-07-17 21:00 | NUR ---
PT BLOOD SUGAR 390 AT THIS TIME. PT IN NO ACUTE DISTRESS AND VS WNL. DR. KIRKPATRICK NOTIFIED OF PATIENT BLOOD SUGAR. GLARGINE INSULIN ORDERED TO BE GIVEN WITH SCHEDULED HUMALOG. WILL CONTINUE TO MONITOR.
--- NOTE | 2023-07-18 04:43 | NUR ---
PT ONLY VOIDED 100ML THIS SHIFT. PER BLADDER SCANNER PT HAS 300ML IN BLADDER. PT STATES SHE DOES NOT FEEL THE ERGE TO VOID AT THIS TIME. DR KIRKPATRICK PAGED AND NOTIFIED OF PT NOT VOIDING AND BLADDER SCAN RESULTS. ORDERS TO RECHECK BLADDER SCAN DURING DAY SHIFT AND LET DR KNOW IF THE PT HASN'T VOIDED BY 8AM OR IF PT HAS INCONTINENT EPISODE. WILL CONTINUE TO MONITOR.
[2023-07-18 05:42] VITALS: BP 129/58
--- NOTE | 2023-07-18 05:46 | NUR ---
PT. VITALS AND I/OS CHARTED. PT. ROOM TIDIED, TRASH CANS EMPTIED. FRESH ICE WATER PROVIDED. NEW PUREWICK IN PLACE AND DEPEND CHANGED. CALL LIGHT LEFT WITHIN REACH. NO OTHER IMMEDIATE NEEDS AT THIS TIME.
[2023-07-18 05:47] LABS: BASOPHILS 0.6 % (0-2); EOSINOPHILS 1.2 % (0-6); HEMATOCRIT 34.8 % (35.0-50.0); HEMOGLOBIN 11.3 g/dL (12.0-18.0); LYMPHOCYTES 13.1 % (24-44); MCH 28.8 (27-36); MCHC 32.4 g/dl (30-36); NEUTROPHILS 74.1 % (39-80); PLATELET COUNT 264 K/uL (140-440); RBC 3.91 M/ul (4.3-5.7); RDW 14.8 (10.5-15.0)
[2023-07-18 06:01] LABS: BUN/CREATININE RATIO 24.75 (6.0-28.6); CALCIUM 9.6 mg/dL (8.5-10.1); CREATININE, SERUM 1.01 mg/dL (0.55-1.02)
--- NOTE | 2023-07-18 07:15 | NUR ---
REPORT RECEIVED FROM RAMSEY RODRIGUES. PT RESTING IN BED WITH EYES CLOSED. RESPIRATIONS EVEN AND UNLABORED. PT RIGHT SIDE LYING, SUPPORTED WITH PILLOWS. HEAD OF BED AT 30 DEGREES. BED RAILS UP. CALL LIGHT WITHIN REACH. PT ALLOWED TO REST.
--- NOTE | 2023-07-18 08:15 | NUR ---
MORNING ASSESSMENT AND MEDICAITON DUE. PT SITTING UP IN BED, HEAD OF BED AT 50 DEGREES, EATING BREAKFAST. PHOTOGRAPHIC INTELLIGENCE OFFICER AT BEDSIDE AND STATES MORNING CARES WITH COMPLETED. PT DENIES PAIN UNLESS HER KNEES ARE TOUCHED OR MOVED. PT VERY IRRITABLE THIS MORNING, PT SWEARING "[facility]" "ALL THIS FUCKING JIBERISH." "SHIT WHAT NEXT." PT TELLS LONG STORIES ABOUT PAST MEDICAL CARE AND HER IRRITATION WITH THE SYSTEM. PT ALERT AND ORINETD TO ALL. PT REMAINS ON BED REST AT THIS TIME, PT DECLINES TIME UP TO CHAIR. KNEES CONTRACTED AND PT STATES SHE IS UNABLE TO STRAIGHTEN HER LEGS. PT ALSO REPARTS SEVERE WEAKNESS IN RIGHT ARM AND STATES SHE IS UNABLE TO MOVE THIS ARM. PT IS SEEN TO USE HER RIGHT ARM TO ANSWER PHONE AND READJUST BLANKETS. HEART TONES IRREGULAR PER BASELINE. LUNG SOUNDS CLEAR. LIMITED GRASP AND MOVEMENT OF RIGHT HAND CONTINUES. PT USING LEFT HAND WITH SKILL TO EAT BREAKFAST AND ANSWER PHONE. DRESSINGS TO BLE REMAINS IN PLACE WITH SMALL AMOUNT OF SEROUS DRAINAGE. PT DENIES ANY NUMBNESS OR TINGLING TO BLE. PT DENIES PAIN TO BLE. URINE SEEN IN PURE WICK CANISTER. PURE WICK REMAINS IN PLACE. PT ENCOURAGED TO DRINK FLUIDS, ICE WATER REFILLED. MEDICATIONS GIVEN. PT DECLINES LIDOCANE PATCH TO HER BACK, MEDICATION HELD. NO ADDITIONAL REQUESTS OR COMPLAINTS. CALL LIGHT KINGSLEY MORALES. BED RAILS UP.
--- NOTE | 2023-07-18 08:54 | NUR ---
Spoke with Carla at [facility] in [place]. States unable to accept patient at this time unless she has a more sound DC plan per patient and family.
[2023-07-18 09:47] VITALS: BP 114/64
--- NOTE | 2023-07-18 09:48 | NUR ---
THIS RN TO ROOM TO CHECK ON PT. PT FINISHING WORKING WITH PHYSICAL THERAPY. PT UP TO CHAIR. PHYSICAL THERPIST REPORTS PT WAS ABLE TO STAND WITH AMINA STEADY BUT WAS UNABLE TO TRANSFER WITH AMINA STEADY UP TO CHAIR. ARJUN LIFT UP TO CHAIR. PT CRIES OUT WITH CUSS WORDS WITH ANY ACTIVITY. PURE WICH CHANGED. PT ALSO CRIES OUT WITH PURE WICK CHANGE. PT DENIES PAIN AND CONTINUES TO REFUSE LIDOCANE PATCH OR OTHER PAIN MEDICAITONS BUT REPORTS PAIN WHENEVER SHE IS TOUCHED AND WITH ANY ACTIVITY. ICE WATER REFILLED AND PT ENCOURAGED TO DRINK FLUIDS. 110ML URINE OUTPUT SEEN IN PURE WICK CANISTER. VITAL SIGNS STABLE. NO ADDITIONAL REQUESTS OR COMPLAINTS. CALL LIGHT WITHIN REACH.
--- NOTE | 2023-07-18 10:07 | NUR ---
PT APPEARED TO BE SLEEPING IN CHAIR. DID NOT ROUSE TO MY KNOCK. PRAYED SILENT PRAYER FOR HEALING AND AWARENESS OF DIVINE PRESENCE.
--- NOTE | 2023-07-18 10:26 | NUR ---
THIS RN TO ROOM TO CHECK ON PT. PT RESTING IN CHAIR WITH EYES CLOSED. RESPIRAITONS EVEN AND UNLABORED. PT ALLOWED TO REST UNDESTURBED. CALL LIGHT WITHIN REACH.
--- NOTE | 2023-07-18 11:07 | NUR ---
THIS RN TO ROOM WITH DR. KIRKPATRICK FOR ROUNDS. DR. KIRKPATRICK UPDATED ON PT ASSESSEMENT, URINE OUTPUT, PAIN AND BLE WOUNDS. PT REPORTS SHE USES A PAIN CREAM ON HER KNEES, NEW ORDERS PLACED. ORDERS TO CONTINUE MONITORING URINE OUTPUT AND ENCOUARGE PO FLUIDS, FRESH ICE WATE RPROVIDED. DR KIRKPATRICK STATES HE WOULD LIKE WOUND CARE NURSES TO REEVALUTE BLE WOUNDS AND CONSIDER DRESSING CHANGE ORDERS. MATERIALS CLERK UPDATED. PT DENIES ADDITIONAL REQUESTS OR COMPLAINTS STATING SHE "JUST WANT TO SLEEP." PT ASSISTED WITH ADJUSTING BLANKETS. CALL LIGHT WITHIN REACH.
--- NOTE | 2023-07-18 12:26 | NUR ---
MEDICATION DUE. PT CONTINUES RESTING IN CHAIR, WATCHING TV. PT REPROTS 10/10 PAIN IN BILATERAL KNEES WHEN THEY ARE TOUCHED AND WITH ACTIVITY. AND 0/10 PAIN WHEN RESTING. MEDICATION CREAM APPLIED (SEE MAR). PT STATES "OH YES, THAT STUFF REALLY HELPS." INSULIN GIVEN. LUNCH DELIVERED. PT EATING LUNCH. NO ADDITONAL REQUESTS OR COMPLAINTS. CALL LIGHT WITHIN REACH.
--- NOTE | 2023-07-18 12:49 | NUR ---
Informed patient of inability to find placement in 2 facilities with referrals. Informed her likely she will need assisted care placement. Agreeable at this time. States if she could, she would like to go to [facility] in [place] or the [facility] to a facility. Called and spoke with Salvador, daughter, discussed assisted care with daughter. Daughter does not want her to go [facility] in [place]. Would [facility] patient be in [facility].
--- NOTE | 2023-07-18 13:10 | NUR ---
Called and spoke with [facility] in [place]. No open beds at this time.
--- NOTE | 2023-07-18 13:26 | NUR ---
Spoke with Carla at [facility] regarding patient being agreeable to [facility] or [facility] placement after SNF if needed. WIll have clinic staff review chart for placement.
--- NOTE | 2023-07-18 13:48 | NUR ---
AFTERNOON ASSESSMENT DUE. PT REMAINS UP TO CHAIR. PT DECLINES GETTING BACK TO CHAIR STATING "I DON'T WANT TO FUCKING MOVE." PT REPORTS VOLTAREN CREAM "HELPS A LOT." PT STATES KNEE PAIN IS NOW 6/10. PT CONTINUES TO DECLIN LIDOCANE PATCH. PT OREINTED TO ALL BUT EXACT DATE. PT CONTINUES TO TALK ABOUT HER TIME IN [facility] BUT IS UNABLE TO RECALL EXACTLY WHEN SHE WAS THERE. PT STAETS "I WAS THERE IN LATE JULY OF 2023." PT ADVISED THAT THIS IS EARLY JULY OF 2023, PT BECOMES ANGRY AND STATES "IT IS NOT!" PT FIXATED ON HER TIME IN [place] STATING "ALL THE HEALTH PEOPLE ARE COOKED AND EVIL." OTHER THAN THIS SUBJECT PT DECLIENS CONVERSATION STATING "JUST DO WHAT YOU DO AND THEN LEAVE ME ALONE." PT UPDATED BY SANITARIAN AIDE AND STATES "THIS IS ALL A FUCKING JOKE." HEART TONES REGULAR, LUNG SOUNDS CLEAR. ABODMEN SOFT AND NON TENDER. BLADDER CAN BE FLET. PT HAS YET TO VOIDE SINCE THIS MORNIGN. PT YELLS "YES I HAVE, I CAN FEEL THAT I WENT." DEPENDS DRY. NO NEW URINE IN PURE WICK. BLADDER SCANNED, 840ML IN BLADDER. DRESSINGS CHANGED PER MD ORDER. PHOTOGRAPHS TAKEN. DRESSINGS APPLIED PER ORDER. PT TOLEARTED POORLY BECOMES TEARFUL AND ANGRY WITH STAFF STATING "i DON'T CARE ABOUT ANY OF THIS FUCKING STUFF." DR. KRIKPATRICK CALLED AND UPDATED. NEW ORDERS GIVEN, ENTERED, REPEAT BACK PERFORMED. ARJUN LIFT BACK TO BED. SUÁREZ CATHETER PLACED PER PROTOCOL. 850ML RETURN FROM SUÁREZ PLACEMENT. PT ALSO TOELRATED THIS VERY POORLY, YELLING AND SCREAMING THROUGHOUT PROCEEDURE. PT FALLS IMDIATLY TO SLEEP AFTER CATHETER PLACEMENT. PT REMAINS IN BED. BED RAILS UP. CALL LIGHT WITHIN REACH.
--- NOTE | 2023-07-18 14:06 | NUR ---
Spoke with patient and Salvador, daughter. Both Agreeable to signing up for shelter Medicaid. Patient agreeable to [facility] placement for SNF if needed. Daughter prefers [facility], but states [facility] is ok if they accept patient for placement.
[2023-07-18 14:25] VITALS: BP 131/59
--- NOTE | 2023-07-18 14:28 | NUR ---
Spoke with Natali Burns at [facility] regarding Medicaid. States she is going to assign patient to case folder to attempt to find in-home care and to have patient call her regarding Medicaid.
--- NOTE | 2023-07-18 14:33 | NUR ---
Chart sent to Paty Bonilla at the [facility].
--- NOTE | 2023-07-18 15:45 | NUR ---
Spoke with Jet at [facility] in [place]. States they will accept the patient tomorrow, before 1600. oj Pereira and daughter, Salvador, notified. Everyone is agreeable to plan. Called to angela Walker/Hilda benjamin, awaiting return call for time.
--- NOTE | 2023-07-18 15:47 | NUR ---
CONSULT FOR NUTRITION. PATIENT WAS SLEEPING THIS AFTERNOON, DID NOT DISTURB. SHE IS ON A 60 GM CONS CARB DIET, FINGER FOODS. SHE HAS A GOOD APPETITE EATING 100% OF MOST MEALS SO FAR. 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 PER CHART REVIEW, SHE DOES NOT APPEAR MALNOURISHED. BMI IS 24.1.
--- NOTE | 2023-07-18 16:19 | NUR ---
THIS RN TO ROOM TO CHECK ON PT. PT RESTING WITH EYES CLOSED. RESPIRATIONS EVEN AND UNLABORED. HEAD OF BED AT 30 DEGREES. BED RAILS UP. CALL LIGHT WITHIN REACH. PT ALLOWED TO REST UNDESTURBED.
--- NOTE | 2023-07-18 17:20 | NUR ---
DINNER DELIVERED TO PT. MEDICATION GIVEN. PT RESTING WITH EYES CLOSED BUT AWAKENS TO VOICE. PT RPEORTS PAIN IS "MUCH BETTER" NOW AT 6/10. PT STATES THIS IS TOLERABLE AND DENIES NEED FOR ADDITIONAL MEDICAITON. PT VERBALIZES UNDERSTANDING OF DISCHARGE TOMORROW. PT CONTINUES TO EXHIBIT CONFUSED BEHAVOIRS SUCH REPEATING INFORMATION, AGITATION WITH INACCURATE INFORMATION, AND INABILITY TO POINT OUT CALL LIGHT, HER WATER AND THE PHONE. PT MIXES UP THE PHONE AND HER TV REMOTE. PT ASSISTED, BUT AGITATED WITH ASSISTANCE. PT DENEIS ADDITIONAL REQUESTS OR COMPLAINTS. CALL LIGHT WITHIN REACH. BED RAILS UP.
--- NOTE | 2023-07-18 17:23 | NUR ---
patient and daughter updated on plan for dc tomorrow. Phone number for Natali Burns provided to patient and intructed to call her to set up Medicaid. Daughter informed patient was provided with number. Daughter plans to bring patient's wheelchair in the morning for transportation to SNF. Informed if Medicaid is not completed, LONG-TERM or senior care options will likely not be covered by insurance and it is important to start the process. Also informed [employer] is getting a case packer assiged to patient to potentially set up in home assistance. Message left for Jet at [facility] and informed her of patient DC time.
--- NOTE | 2023-07-18 17:35 | NUR ---
PT HERE FOR CELLULITIS AND WEAKNESS. PT UP WITH ARJUN LIFT THIS SHIFT TO CHAIR. PHYSICAL THERAPY REPORTS PT IS ABLE TO ATTEMPT TO STAND WITH AMINA STEADY BUT UNABLE TO TRANSFER WITH THIS DEVICE. PT TOLERATING 60G CARB DIET WITH MODERATE APPITITE. BLOOD SUGAR CHECKS WITH MEALS, SLIDING SCALE INSULIN GIVEN. BLOOD SUGARS REMAIN ELEAVETD IN THE 2-300s. RIGHT ARM REMAINS WEAK BUT PT IS ABLE TO USE THIS ARM TO ASSIST AT TIMES. BLADDER SCAN SHOWS >800 IN BLADDER THIS AFTERNOON, SUÁREZ CATHETER PLACED. DRESSINGS TO BLE CHANGED, PT TOLERATES DRESSING CHANGES VERY POORLY. VOLTARIN CREAM ADDED FOR PAIN, APPLIED. NEW PHOTOGRAPHS OF BLE TAKEN AN DON PAPER CHART. PT ANTICIPATING TRANSFER TO FACILITY TOMORROW. PT DOES NOT USE CALL LIGHT. SHOWS SIGNS OF FORGETFULNESS AND CONFUSION (SEE RN NOTES). INTENTIONAL HOURLY ROUNDING PERFORMED.
[2023-07-18 17:52] VITALS: BP 111/57
--- NOTE | 2023-07-18 18:24 | NUR ---
THIS RN TO ROOM TO CHECK ON PT. PT RESTING WITH EYES CLOSED. PT AWAKENS TO VOICE. PT REPORTS FEELING COMFORTABLE. PT REQUESTS FRESH WATER, PROVIDED, AND ASSISTANCE CALLING HER SON. PT IS UNABLE TO REMEMBER HER SON'S NUMBER OR WHERE TO FIND IT. PT STATES SHE WILL CALL IF SHE REMEMBERS. PT RETURNS TO RESTING WITH EYES CLOSED. NO ADDITOINAL REQUESTS OR COMPLAINTS. CALL LIGHT WITHIN REACH. HEAD OF BED ELEVATED TO 35 DEGREES.
--- NOTE | 2023-07-18 18:29 | NUR ---
PTS DAUGHTER CALLED. PT ASSISTED WITH TALKING TO HER DAUGHTER. PTS SON'S PHONE NUMBER RETRIEVED FROM DAUGHTER. PTS DAUGHTER UDPATED PER PT REQUEST. PT ASSISTED WITH CALLING HER SON. NO ADDITIONAL NEEDS. CALL LIGHT WITHIN REACH. BED RAILS UP.
--- NOTE | 2023-07-18 19:31 | NUR ---
RECEIVED REPORT FROM DAY SHIFT RN. PT RESTING COMFORTABLY IN BED. BREATHING EVEN AND UNLABORED. NO SIGNS OF ACUTE DISTRESS. CALL LIGHT WITHIN REACH. SUÁREZ IN PLACE. NO NEEDS AT THIS TIME.
[2023-07-18 21:36] VITALS: BP 112/49
[2023-07-19 05:38] VITALS: BP 121/55
[2023-07-19 06:00] LABS: BASOPHILS 0.3 % (0-2); EOSINOPHILS 0.9 % (0-6); HEMATOCRIT 33.7 % (35.0-50.0); HEMOGLOBIN 10.8 g/dL (12.0-18.0); LYMPHOCYTES 11.4 % (24-44); MCH 28.5 (27-36); MCHC 31.9 g/dl (30-36); MCV 89.2 fl (81-99); MONOCYTES 11.7 % (0-12); NEUTROPHILS 75.7 % (39-80); PLATELET COUNT 317 K/uL (140-440); RBC 3.78 M/ul (4.3-5.7); RDW 14.8 (10.5-15.0)
[2023-07-19 06:20] LABS: ANION GAP 9.9 (7-21); CALCIUM 10.1 mg/dL (8.5-10.1); CREATININE, SERUM 0.84 mg/dL (0.55-1.02); POTASSIUM 3.9 mmol/L (3.5-5.1)
--- NOTE | 2023-07-19 07:21 | NUR ---
REPORT RECEIVED FROM RAMSEY RODRIGUES. PT RESTING ON RIGHT SIDE, SUPPORTED WITH PILLOWS, WITH EYES CLOSED. RESPRIATIONS EVEN AND UNLABORED. CALL LIGHT WITHIN REACH. PT ALLOWED TO REST UNDESTURBED.
[2023-07-19 09:01] VITALS: BP 120/63
[2023-07-19 09:05] VITALS: BP 120/63
--- NOTE | 2023-07-19 09:08 | NUR ---
MORNING ASSESSMENT AND MEDICATION DUE. PT RESTING IN BED, EATING BREAKFAST. PT DECLINES TIME UP TO CHAIR, ADIMENT THAT SHE DOES NOT WANT TO GET UP AT THIS TIME. PT OREINTED TO ALL BUT EXACT DATE. PT CONTINUES TO BE FORGETFUL. ABLE TO RECAL BIG EVENTS AND CONTINUES TO FIXATED ON HER TIME IN [place], CANNOT RECALL DETAILS. PT FORGETS WHERE SHE HAS ITEMS THAT ARE RIGHT IN FRONT OF HER. HIGHER LEVEL THINKING ALSO NOT CLEAR PT IS UNABLE TO ADD NUMBERS. LUNG SOUNDS CLEAR. HEART TONES MILDY IRREGULAR. PT REPORTS 8/10 PAIN IN BILATERAL KNEES. VOLTARIN CREAM APPLIED. SUÁREZ CATHETER REMAINS IN PLACE, QUANTITIY SUFFICIENT. DRESSINGS TO BLE CHANGED PER MD ORDER. NO CHANGE IN WOUNDS. DR KIRKPATRICK TO BEDSIDE TO REVIEW PLAN OF DISCHARGE WITH PT. PT VERBALIZES UNDERSTANDING. PT DRESSED WITH 2 PERSON ASSIST. PT CRIES OUT WITH CUSS WORDS DURING CARES. SUÁREZ TO REMAIN IN PLACE FOR DISCHRAGE. IV DC'D PER PROTOCOL, GAUZE AND COBAN APPLIED. NO ADDIITONAL REQUESTS OR COMPLAINTS. HISTORIOGRAPHY TEACHER'S WORKING WITH PT TO PACK BELONGINGS. CALL LIGHT WITHIN REACH.
[2023-07-19] MEDS ORDERED: DOXYCYCLINE HY100 MG PO (09:47)
[2023-07-19] MEDS ORDERED: HUMALOG100 UNITS/ SUB-Q (09:49)
[2023-07-19] MEDS ORDERED: DICLOFENAC SOD100 G1 TOP (09:54)
--- NOTE | 2023-07-19 10:00 | NUR ---
DISCHARGE INSTRUCTIONS AND PLAN REVIEWED WITH PT. PT HAS TROUBLE REMEMBERING INFORMATION BUT IS ABLE TO REPEAT BACK MAIN POINTS AND PLAN AT NEW FACILITY. PT TRANSFERED TO WHEELCHAIR BY ARJUN LIFT. ALL BELONGINGS SENT WITH PT. PT WHEELED FROM MED/SURG. DISCHARGE PACKET GIVEN TO TRANSPORT PERSONMIO.
--- NOTE | 2023-07-19 10:06 | NUR ---
[facility] Jet at [facility] notified orders have been faxed.
--- NOTE | 2023-07-19 12:14 | NUR ---
[facility] B[facility] WILL BE PICKED UP CONFIRMATION # IS [id number]. I SPOKE WITH ALLAN GAMEZ
== END 2023-07-19 10:05 | DRG 603 ==
LOC: ED 11:28 → MS 15:34
PROVIDERS: Emergency Medicine; ADMIT Family Medicine; ATTEND Family Medicine
PROC: 0T9B70Z Drainage of Bladder with Drainage Device, Via Natural or Artificial Opening (ICD-10-PCS; principal; 2023-07-17)
DX: L03.115 Cellulitis of right lower limb (principal); L03.116 Cellulitis of left lower limb; N18.30 Chronic kidney disease, stage 3 unspecified; R33.9 Retention of urine, unspecified; I48.91 Unspecified atrial fibrillation; E78.5 Hyperlipidemia, unspecified; G89.29 Other chronic pain; E11.22 Type 2 diabetes mellitus with diabetic chronic kidney disease; G58.9 Mononeuropathy, unspecified; I87.8 Other specified disorders of veins; F32.A Depression, unspecified; H91.90 Unspecified hearing loss, unspecified ear; F41.9 Anxiety disorder, unspecified; I12.9 Hypertensive chronic kidney disease with stage 1 through stage 4 chronic kidney disease, or unspecified chronic kidney disease; F17.210 Nicotine dependence, cigarettes, uncomplicated; Z90.710 Acquired absence of both cervix and uterus; Z90.49 Acquired absence of other specified parts of digestive tract; Z79.899 Other long term (current) drug therapy; Z79.2 Long term (current) use of antibiotics; Z60.2 Problems related to living alone; Z79.01 Long term (current) use of anticoagulants; Z99.3 Dependence on wheelchair; Z79.891 Long term (current) use of opiate analgesic; Z79.4 Long term (current) use of insulin
CPT/HCPCS: 36415; 80048; 80053; 81001; 83036; 85025; 87088; 97110; 97163; 97166; 97530; A9270; J1650; J1815